=== PATIENT | male | born 1975 | race Caucasian/White ===

== ENCOUNTER 2018-01-30 10:56 | Emergency (ER) | payer OTHER ==
[2018-01-30] MEDS: KETOROLAC 30 MG/ML VIAL (J1885) IV (11:58)
[2018-01-30 12:01] LABS: BASO % 0.2 % (0.0-1.0); EOS # 0.2 10^3/uL (0.0-0.50); EOS % 2.2 % (0.0-3.0); HEMATOCRIT 41.4 % (42.0-52.0); HEMOGLOBIN 13.8 g/dl (13.5-17.5); IMMATURE GRANULOCYTE % 0.4 % (0-3.0); LYMPH # 1.6 10^3/uL (1.5-4.5); LYMPH % 14.5 % (24.0-44.0); MEAN CORPUSCULAR HEMOGLOBIN 27.4 pg (27.0-33.0); MEAN CORPUSCULAR HGB CONC 33.3 g/dl (32.0-36.5); MEAN CORPUSCULAR VOLUME 82.1 fl (80.0-96.0); MONO % 9.4 % (0.0-5.0); NEUTROPHILS # 8.1 10^3/uL (1.8-7.7); NEUTROPHILS % 73.3 % (36.0-66.0); PLATELET COUNT, AUTOMATED 302 10^3/uL (150-450); RED BLOOD COUNT 5.04 10^6/uL (4.30-6.10); RED CELL DISTRIBUTION WIDTH 14.5 % (11.5-14.5); WHITE BLOOD COUNT 11.1 10^3/uL (4.0-10.0)
[2018-01-30] MEDS: GASTROGRAFIN SOLUTION 30ML (Q9963) PO ×2 (12:01→12:15)
[2018-01-30 12:29] LABS: ALBUMIN 3.9 GM/DL (3.2-5.2); ALBUMIN/GLOBULIN RATIO 1.18 (1.00-1.93); ALKALINE PHOSPHATASE 80 U/L (45-117); ALT/SGPT 45 U/L (12-78); ANION GAP 11 MEQ/L (8-16); AST/SGOT 29 U/L (7-37); BILIRUBIN,TOTAL 0.3 MG/DL (0.2-1.0); BLOOD UREA NITROGEN 13 MG/DL (7-18); C REACTIVE PROTEIN QUANTITATIV 2.15 MG/DL (0.00-0.30); CALCIUM LEVEL 9.2 MG/DL (8.5-10.1); CARBON DIOXIDE LEVEL 25 MEQ/L (21-32); CHLORIDE LEVEL 103 MEQ/L (98-107); CREATININE FOR GFR 0.82 MG/DL (0.70-1.30); GLOMERULAR FILTRATION RATE > 60.0 (>60); GLUCOSE, FASTING 86 MG/DL (70-100); LIPASE 83 U/L (73-393); POTASSIUM SERUM 4.3 MEQ/L (3.5-5.1); SODIUM LEVEL 139 MEQ/L (136-145); TOTAL PROTEIN 7.2 GM/DL (6.4-8.2)
[2018-01-30 13:32] LABS: APPEARANCE, URINE CLEAR (CLEAR); BACTERIA, URINE AUTO NEGATIVE (NEGATIVE); BILIRUBIN, URINE AUTO NEGATIVE (NEGATIVE); BLOOD, URINE BLOOD NEGATIVE (NEGATIVE); COLOR, URINE YELLOW (YELLOW); GLUCOSE, URINE (UA) AUTO NEGATIVE (NEGATIVE); KETONE, URINE AUTO NEGATIVE (NEGATIVE); LEUKOCYTE ESTERASE, URINE AUTO NEGATIVE (NEGATIVE); MUCUS, URINE SMALL (NEGATIVE); NITRITE, URINE AUTO NEGATIVE (NEGATIVE); PROTEIN, URINE AUTO NEGATIVE (NEGATIVE); RBC, URINE AUTO 0 /HPF (0-3); SPECIFIC GRAVITY URINE AUTO 1.014 (1.002-1.035); SQUAMOUS EPITHELIAL CELL UR AU 0 /HPF (0-6); UROBILINOGEN, URINE AUTO 0.2 mg/dL (0.0-2.0); WBC, URINE AUTO 0 /HPF (0-3)
[2018-01-30] MEDS ORDERED: ISOVUE-370 76% 100ML VIAL (Q9967) As Ordered (13:45)
== END 2018-01-30 15:15 | disposition home or self-care (01) ==
LOC: M ED 10:56
DX: K57.32 Diverticulitis of large intestine without perforation or abscess without bleeding (principal); R10.32 Left lower quadrant pain
CPT/HCPCS: Q9963

== ENCOUNTER → 2018-03-07 | Outpatient (CLI) | payer OTHER ==
[2018-03-07 17:22] LABS: BASO % 0.5 % (0.0-1.0); EOS # 0.3 10^3/uL (0.0-0.50); EOS % 3.2 % (0.0-3.0); HEMATOCRIT 42.4 % (42.0-52.0); HEMOGLOBIN 13.7 g/dl (13.5-17.5); IMMATURE GRANULOCYTE % 0.6 % (0-3.0); LYMPH # 2.2 10^3/uL (1.5-4.5); LYMPH % 25.5 % (24.0-44.0); MEAN CORPUSCULAR HEMOGLOBIN 26.8 pg (27.0-33.0); MEAN CORPUSCULAR HGB CONC 32.3 g/dl (32.0-36.5); MEAN CORPUSCULAR VOLUME 82.8 fl (80.0-96.0); MONO # 0.9 10^3/uL (0.0-0.8); MONO % 9.7 % (0.0-5.0); NEUTROPHILS # 5.3 10^3/uL (1.8-7.7); NEUTROPHILS % 60.5 % (36.0-66.0); PLATELET COUNT, AUTOMATED 363 10^3/uL (150-450); RED BLOOD COUNT 5.12 10^6/uL (4.30-6.10); RED CELL DISTRIBUTION WIDTH 14.5 % (11.5-14.5); WHITE BLOOD COUNT 8.8 10^3/uL (4.0-10.0)
== END ==
LOC: M LAB 16:28
DX: R10.9 Unspecified abdominal pain (principal)
CPT/HCPCS: 85025

== ENCOUNTER → 2018-04-06 | Outpatient (CLI) | payer OTHER | LOC: M RAD 10:05 | DX: D48.0 Neoplasm of uncertain behavior of bone and articular cartilage (principal) | CPT/HCPCS: 78315 ==

== ENCOUNTER → 2018-04-09 | Outpatient (CLI) | payer OTHER | LOC: M CARPUL 10:37 | DX: Z86.711 Personal history of pulmonary embolism (principal) | CPT/HCPCS: Q9967 ==

== ENCOUNTER → 2018-04-09 | Outpatient (CLI) | payer OTHER ==
[~2018-04-09] MED LIST: ISOVUE-370 76% 100ML VIAL (Q9967) As Ordered
== END ==
LOC: M RAD 10:38
DX: Z86.711 Personal history of pulmonary embolism (principal)

== ENCOUNTER → 2019-12-06 | Outpatient (CLI) | payer OTHER ==
[~2019-12-06] MED LIST changes: +CIPR-249 PO; +FLAG500T PO; +FLON1SPR NARES; +FOLI1TAB11 PO; -ISOVUE-370 76% 100ML VIAL (Q9967) As Ordered; +KETO10TAB PO; +LORA-753 PO; +MULTCAP PO; +OMEP40CA97 PO; +XARE20TA PO
== END ==
LOC: M LABSMTC 11:30
PROVIDERS: ATTEND Surgery
DX: Z11.59 Encounter for screening for other viral diseases (principal)
CPT/HCPCS: C9803; U0003

== ENCOUNTER 2021-03-25 12:03 | Day surgery (SDC) | payer OTHER ==
[~2021-03-25] VITALS: Ht 180.3 cm; Wt 145.3 kg
[~2021-03-25 12:03] MED LIST changes: +NS 1,000 ML IV ONE; +OMEG12003 PO; +OMEP40CA4 PO; -OMEP40CA97 PO; +THERTAB52 PO
--- OUTSIDE RECORDS SUMMARY | 2021-03-25 12:08 | CCD | Continuity of Care Document ---
Author Author Ed LYNNE M.D. Organization Unknown Address [address] [facility], [address] [place] [address] Phone [phone] Care Team Providers Care Meat Press Operator Name Role Phone Chilo Baker D.O. AUTM [phone] AUTM Unavailable Errol Goddard M.D. AUTM [phone] Problems Description No Information Available Social History Type Date Description Comments Sex Unknown ETOH Use 2 A Month Recreational Drug Use Denies Drug Use Tobacco Use Start: Unknown End: Patient is a former smoker 1/2 PPD X5 YRS Allergies and adverse reactions Description No Known Drug Allergies Medications Active Medications SIG Qnty Indications Ordering Provide r Date Omeprazole 20mg Capsules DR 1 by mouth every day Unknown Multivitamin Adult Tablets 1 by mouth every day Unknown CPAP +11 [facility] Unknown Loratadine 10mg Capsules 1 by mouth every day Unknown Fish Oil 1200mg Capsules ever y day Unknown Immunizations Description No Information Available Vital Signs Date Vital Result Comment 01/27/2021 8:47am BP Systolic 150 mmHg BP Diastolic 88 mmHg Body Temperature 98.3 F Height 71 inches 5'11" Weight 329.00 lb BMI (Body Mass Index) 45.9 kg/m2 [place] Body Weight 172 lb Weight 149.234 kg BSA (Body Surface Area) 2.61 m2 12/04/2018 3:24pm BP Systolic 130 mmHg BP Diastolic 90 mmHg Heart Rate 83 /min O2 % BldC Oximetry 98 % Height 71 inches 5'11" Weight 332.00 lb BMI (Body Mass Index) 46.3 kg/m2 [place] Body Weight 172 lb Weight 150.595 kg BSA (Body Surface Area) 2.62 m2 Results Description No Information Available Procedures Date Code Description Status 01/27/2021 84418 Office/Outpatient Established Lo w MDM 20-29 Min Completed Medical Devices Description No Information Available Encounters Type Date Location Provider Dx Diagnosis Office Visit 01/27/2021 8:45a [facility] Edmar santoyo M.D. K57.32 Dvtrcli of lg int w/o perforation or abs cess w/o bleeding G47.33 Obstructive sleep apnea (clara lt) (pediatric) Assessments Date Code Description Provider 01/27/2021 K57.32 Diverticulitis of large intestin e without perforation or abs Edmar Lynne M.D. 01/27/2021 G47.33 Obstructive sleep apnea (adult) (pediatric) Edmar Lynne M.D. Plan of Treatment Future Appointment(s):* 04/08/2021 11:15 am - ANDREA Streeter at [facility] * 03/25/2021 1:45 pm - Edmar Lynne M.D. at [facility] 01/27/2021 - Edmar yLnne M.D.* K57.32 Diverticulitis of large intestine without perforation or abs* Comments:* Patient has now had at least 2 significant episodes of diverticulitis and his recollection is that he has had about 3 serious attacks. He is now doing well. Patient has never had a in the colon cancer screening. I advised the patient that I think it would be reasonable at this point to consider a colonoscopy. This would serve as his initial colon cancer screening but also allow us to assess the extent of his diverticulosis and also assess whether he may have some degree of scarring or narrowing from his diverticulitis. Indications for the procedure as well as the risks and possible benefits were discussed. He had an opportunity to ask questions. He desires to proceed and we will plan on scheduling a colo noscopy. * G47.33 Obstructive sleep apnea (adult) (pediatric) Functional Status Description No Information Available Mental Status Description No Information Available Referrals Refer to Reason for Referral Status Appt Date Edmar Lynne M.D. DIVERTICULITIS EVAL & TREAT Scheduled 12/23/2020 [facility] [address] [place], [place] [id number] [phone]
--- OUTSIDE RECORDS SUMMARY | 2021-03-25 12:08 | CCD | Continuity of Care Document ---
Author Author Ed LYNNE M.D. Organization Unknown Address [address] [facility], [address] [place] [address] Phone [phone] Care Team Providers Care Chemical Pathologist Name Role Phone Chilo Baker D.O. AUTM [phone] AUTM Unavailable Errol Goddard M.D. AUTM [phone] Problems Description No Information Available Social History Type Date Description Comments Sex Unknown ETOH Use 2 A Month Recreational Drug Use Denies Drug Use Tobacco Use Start: Unknown End: Patient is a former smoker 1/2 PPD X5 YRS Allergies, Adverse Reactions, Alerts Description No Known Drug Allergies Medications Active [...] lb BMI (Body Mass Index) 45.9 kg/m2 [place] Body Weight 172 lb Weight 149.234 kg BSA (Body Surface Area) 2.61 m2 12/04/2018 3:24pm BP Systolic 130 mmHg BP Diastolic 90 mmHg Heart Rate 83 /min O2 % BldC Oximetry 98 % Height 71 inches 5'11" Weight 332.00 lb BMI (Body Mass Index) 46.3 kg/m2 [place] Body Weight 172 lb Weight 150.595 kg BSA (Body Surface Area) 2.62 m2 Results Description No Information Available Procedures Description No Information Available Medical Devices Description No Information Available Encounters Description No Information Available Assessments Description No Information Available Plan of Treatment 12/04/2018 - Radha Benítez M.D.* G47.33 Obstructive sleep apnea (adult) (pediatric) * I26.99 Other pulmonary embolism without acute cor pulmonale * * Follow up:* Follow-up in 1 year with compliance report Functional Status Description No Information Available Mental Status Description No Information Available Referrals Refer to Reason for Referral Status Appt Date Edmar Lynne M.D. DIVERTICULITIS EVAL & TREAT Scheduled 12/23/2020 [facility] [address] [place] [address] [phone]
--- OUTSIDE RECORDS SUMMARY | 2021-03-25 12:08 | CCD | Continuity of Care Document ---
Author Author Ed LYNNE M.D. Organization Unknown Address [address] [facility], [address] [place] [address] Phone [phone] Care Team Providers Care Senior Quality Methods Specialist Name Role Phone Chilo Baker D.O. AUTM [phone] AUTM Unavailable Errol Goddard M.D. AUTM [phone] Problems Description No Information Available Social History [...] lb BMI (Body Mass Index) 45.9 kg/m2 [place] Body Weight 172 lb Weight 149.234 kg BSA (Body Surface Area) 2.61 m2 12/04/2018 3:24pm BP Systolic 130 mmHg BP Diastolic 90 mmHg Heart Rate 83 /min O2 % BldC Oximetry 98 % Height 71 inches 5'11" Weight 332.00 lb BMI (Body Mass Index) 46.3 kg/m2 [place] Body Weight 172 lb Weight 150.595 kg BSA (Body Surface Area) 2.62 m2 Results Description No Information Available Procedures Date Code Description Status 01/27/2021 95040 Office/Outpatient Established Lo w MDM 20-29 Min Completed Medical Devices Description No Information Available Encounters Type Date Location Provider Dx Diagnosis Office Visit 01/27/2021 8:45a [facility] Edmar santoyo M.D. K57.32 Dvtrcli of [...] 04/08/2021 11:15 am - ANDREA Streeter at [facility] * 03/25/2021 1:45 pm - Edmar Lynne M.D. at [facility] 01/27/2021 - Edmar Lynne M.D.* K57.32 Diverticulitis of large intestine without [...] M.D. DIVERTICULITIS EVAL & TREAT Scheduled 12/23/2020 [facility] [address] [place], [place] [id number] [phone]
--- OUTSIDE RECORDS SUMMARY | 2021-03-25 12:09 | CCD ---
Author Author [facility] Address Unknown Phone Unavailable Care Team Providers Care Strength And Conditioning Coach Name Role Phone Albert WADE MD Unavailable Unavailable Albert WADE MD Unavailable Unavailable Albert WADE MD Unavailable Unavailable Albert WADE MD Unavailable Unavailable Albert WADE MD Unavailable Unavailable Albert WADE MD Unavailable Unavailable Albert WADE MD Unavailable Unavailable Albert WADE MD Unavailable Unavailable Albert WADE MD Unavailable Unavailable Albert WADE MD Unavailable Unavailable Albert WADE MD Unavailable Unavailable Albert WADE MD Unavailable Unavailable Albert WADE MD Unavailable Unavailable Albert WADE MD Unavailable Unavailable Albert WADE MD Unavailable Unavailable Albert WADE MD Unavailable Unavailable Albert WADE MD Unavailable Unavailable Albert WADE MD Unavailable Unavailable Albert WADE MD Unavailable Unavailable Albert WADE MD Unavailable Unavailable Albert WADE MD Unavailable Unavailable Albert WADE MD Unavailable Unavailable Albert WADE MD Unavailable Unavailable Albert WADE MD Unavailable Unavailable Albert WADE MD Unavailable Unavailable Albert WADE MD Unavailable Unavailable Albert WADE MD Unavailable Unavailable Albert WADE MD Unavailable Unavailable Albert WADE MD Unavailable Unavailable Albert WADE MD Unavailable Unavailable Albert WADE MD Unavailable Unavailable Albert WADE MD Unavailable Unavailable Albert WADE MD Unavailable Unavailable Albert WADE MD Unavailable Unavailable Albert WADE MD Unavailable Unavailable Albert WADE MD Unavailable Unavailable SHERI H JAMES ZUNIGA Unavailable Unavailable SHERI H JAMES ZUNIGA Unavailable Unavailable Albert WADE MD Unavailable Unavailable Albert WADE MD Unavailable Unavailable Albert WADE MD Unavailable Unavailable Albert WADE MD Unavailable Unavailable SHERI H JAMES ZUNIGA Unavailable Unavailable SHERI H JAMES ZUNIGA Unavailable Unavailable Albert WADE MD Unavailable Unavailable SHERI H JAMES ZUNIGA Unavailable Unavailable Albert WADE MD Unavailable Unavailable Albert WADE MD Unavailable Unavailable Albert WADE MD Unavailable Unavailable Albert WADE MD Unavailable Unavailable Albert WADE MD Unavailable Unavailable Albert WADE MD Unavailable Unavailable Albert WADE MD Unavailable Unavailable Albert WADE MD Unavailable Unavailable Albert WADE MD Unavailable Unavailable Albert WADE MD Unavailable Unavailable Albert WADE MD Unavailable Unavailable Albert WADE MD Unavailable Unavailable Albert WADE MD Unavailable Unavailable Albert WADE MD Unavailable Unavailable Albert WADE MD Unavailable Unavailable Albert WADE MD Unavailable Unavailable Albert WADE MD Unavailable Unavailable Albert WADE MD Unavailable Unavailable Albert WADE MD Unavailable Unavailable Albert WADE MD Unavailable Unavailable Albert WADE MD Unavailable Unavailable Albert WADE MD Unavailable Unavailable Albert WADE MD Unavailable Unavailable Albert WADE MD Unavailable Unavailable Albert WADE MD Unavailable Unavailable Albert WADE MD Unavailable Unavailable Albert WADE MD Unavailable Unavailable Albert WADE MD Unavailable Unavailable Albert WADE MD Unavailable Unavailable Albert WADE MD Unavailable Unavailable Albert WADE MD Unavailable Unavailable Naun LYNNE MD Unavailable Unavailable Naun LYNNE MD Unavailable Unavailable Naun LYNNE MD Unavailable Unavailable Naun LYNNE MD Unavailable Unavailable Naun LYNNE MD Unavailable Unavailable Naun LYNNE MD Unavailable Unavailable Naun LYNNE MD Unavailable Unavailable Naun LYNNE MD Unavailable Unavailable Naun LYNNE MD Unavailable Unavailable Naun LYNNE MD Unavailable Unavailable Naun LYNNE MD Unavailable Unavailable Naun LYNNE MD Unavailable Unavailable Naun LYNNE MD Unavailable Unavailable Naun LYNNE MD Unavailable Unavailable Naun LYNNE MD Unavailable Unavailable Naun LYNNE MD Unavailable Unavailable MAGED, O DARLEEN MD Unavailable Unavailable MAGED, O DARLEEN MD Unavailable Unavailable MAGED, O DARLEEN MD Unavailable Unavailable MAGED, O DARLEEN MD Unavailable Unavailable MAGED, O DARLEEN MD Unavailable Unavailable MAGED, O DARLEEN MD Unavailable Unavailable MAGED, O DARLEEN MD Unavailable Unavailable MAGED, O DARLEEN MD Unavailable Unavailable MAGED, O DARLEEN MD Unavailable Unavailable MAGED, O DARLEEN MD Unavailable Unavailable MAGED, O DARLEEN MD Unavailable Unavailable MAGED, O DARLEEN MD Unavailable Unavailable MAGED, O DARLEEN MD Unavailable Unavailable MAGED, O DARLEEN MD Unavailable Unavailable MAGED, O DARLEEN MD Unavailable Unavailable MAGED, O DARLEEN MD Unavailable Unavailable MAGED, O DARLEEN MD Unavailable Unavailable MAGED, O DARLEEN MD Unavailable Unavailable MAGED, O DARLEEN MD Unavailable Unavailable MAGED, O DARLEEN MD Unavailable Unavailable MAGED, O DARLEEN MD Unavailable Unavailable MAGED, O DARLEEN MD Unavailable Unavailable MAGED, O DARLEEN MD Unavailable Unavailable MAGED, O DARLEEN MD Unavailable Unavailable MAGED, O DARLEEN MD Unavailable Unavailable MAGED, O DARLEEN MD Unavailable Unavailable MAGED, O DARLEEN MD Unavailable Unavailable MAGED, O DARLEEN MD Unavailable Unavailable MAGED, O DARLEEN MD Unavailable Unavailable TURRIN, RAMONITA Unavailable Unavailable TURRIN, RAMONITA Unavailable Unavailable TURRIN, RAMONITA Unavailable Unavailable TURRIN, RAMONITA Unavailable Unavailable Fish, J Chilo Unavailable Unavailable Fish, J Chilo Unavailable Unavailable Fish, J Chilo Unavailable Unavailable Fish, J Chilo Unavailable Unavailable Fish, J Chilo Unavailable Unavailable Fish, J Chilo Unavailable Unavailable Fish, J Chilo Unavailable Unavailable Fish, J Chilo Unavailable Unavailable Fish, J Chilo Unavailable Unavailable Fish, J Chilo Unavailable Unavailable Fish, J Chilo Unavailable Unavailable Fish, J Chilo Unavailable Unavailable Fish, J Chilo Unavailable Unavailable Fish, J Chilo Unavailable Unavailable Fish, J Chilo Unavailable Unavailable Fish, J Chilo Unavailable Unavailable Fish, J Chilo Unavailable Unavailable Fish, J Chilo Unavailable Unavailable Fish, J Chilo Unavailable Unavailable Fish, J Chilo Unavailable Unavailable Fish, J Chilo Unavailable Unavailable Fish, J Chilo Unavailable Unavailable Fish, J Chilo Unavailable Unavailable Fish, J Chilo Unavailable Unavailable Fish, J Chilo Unavailable Unavailable Fish, J Chilo Unavailable Unavailable Fish, J Chilo Unavailable Unavailable Fish, J Chilo Unavailable Unavailable Fish, J Chilo Unavailable Unavailable Fish, J Chilo Unavailable Unavailable Fish, J Chilo Unavailable Unavailable Fish, J Chilo Unavailable Unavailable Fish, J Chilo Unavailable Unavailable Fish, J Chilo Unavailable Unavailable Fish, J Chilo Unavailable Unavailable Fish, J Chilo Unavailable Unavailable Fish, J Chilo Unavailable Unavailable Fish, J Chilo Unavailable Unavailable Fish, J Chilo Unavailable Unavailable Fish, J Chilo Unavailable Unavailable Fish, J Chilo Unavailable Unavailable Fish, J Chilo Unavailable Unavailable Fish, J Chilo Unavailable Unavailable Fish, J Chilo Unavailable Unavailable Fish, J Chilo Unavailable Unavailable Fish, J Chilo Unavailable Unavailable Fish, J Chilo Unavailable Unavailable Fish, J Chilo Unavailable Unavailable Fish, J Chilo Unavailable Unavailable Fish, J Chilo Unavailable Unavailable Fish, J Chilo Unavailable Unavailable Fish, J Chilo Unavailable Unavailable Fish, J Chilo Unavailable Unavailable Fish, J Chilo Unavailable Unavailable Fish, J Chilo Unavailable Unavailable Fish, J Chilo Unavailable Unavailable Fish, J Chilo Unavailable Unavailable Fish, J Chilo Unavailable Unavailable Fish, J Chilo Unavailable Unavailable Fish, J Chilo Unavailable Unavailable Fish, J Chilo Unavailable Unavailable Fish, J Chilo Unavailable Unavailable Fish, J Chilo Unavailable Unavailable Fish, J Chilo Unavailable Unavailable Fish, J Chilo Unavailable Unavailable Fish, J Chilo Unavailable Unavailable Fish, J Chilo Unavailable Unavailable Fish, J Chilo Unavailable Unavailable Fish, J Chilo Unavailable Unavailable Fish, J Chilo Unavailable Unavailable Fish, J Chilo Unavailable Unavailable Fish, J Chilo Unavailable Unavailable Fish, J Chilo Unavailable Unavailable Fish, J Chilo Unavailable Unavailable Fish, J Chilo Unavailable Unavailable Fish, J Chilo Unavailable Unavailable Fish, J Chilo Unavailable Unavailable Fish, J Chilo Unavailable Unavailable Fish, J Chilo Unavailable Unavailable Fish, J Chilo Unavailable Unavailable Fish, J Chilo Unavailable Unavailable Fish, J Chilo Unavailable Unavailable Fish, J Chilo Unavailable Unavailable Fish, J Chilo Unavailable Unavailable Fish, J Chilo Unavailable Unavailable Fish, J Chilo Unavailable Unavailable Fish, J Chilo Unavailable Unavailable Fish, J Chilo Unavailable Unavailable Fish, J Chilo Unavailable Unavailable Fish, J Chilo Unavailable Unavailable Fish, J Chilo Unavailable Unavailable Fish, J Chilo Unavailable Unavailable Fish, J Chilo Unavailable Unavailable Fish, J Chilo Unavailable Unavailable Fish, J Chilo Unavailable Unavailable Fish, J Chilo Unavailable Unavailable Fish, J Chilo Unavailable Unavailable Fish, J Chilo Unavailable Unavailable Fish, J Chilo Unavailable Unavailable Fish, J Chilo Unavailable Unavailable Fish, J Chilo Unavailable Unavailable Fish, J Chilo Unavailable Unavailable Fish, J Chilo Unavailable Unavailable Fish, J Chilo Unavailable Unavailable Fish, J Chilo Unavailable Unavailable Fish, J Chilo Unavailable Unavailable Fish, J Chilo Unavailable Unavailable Fish, J Chilo Unavailable Unavailable Fish, J Chilo Unavailable Unavailable Fish, J Chilo Unavailable Unavailable Fish, J Chilo Unavailable Unavailable Fish, J Chilo Unavailable Unavailable Fish, J Chilo Unavailable Unavailable Fish, J Chilo Unavailable Unavailable Fish, J Chilo Unavailable Unavailable Fish, J Chilo Unavailable Unavailable Fish, J Chilo Unavailable Unavailable Fish, J Chilo Unavailable Unavailable Fish, J Chilo Unavailable Unavailable Fish, J Chilo Unavailable Unavailable Fish, J Chilo Unavailable Unavailable Fish, J Chilo Unavailable Unavailable Fish, J Chilo Unavailable Unavailable Fish, J Chilo Unavailable Unavailable Fish, J Chilo Unavailable Unavailable Fish, J Chilo Unavailable Unavailable Fish, J Chilo Unavailable Unavailable Fish, J Chilo Unavailable Unavailable Fish, J Chilo Unavailable Unavailable Fish, J Chilo Unavailable Unavailable Fish, J Chilo Unavailable Unavailable Fish, J Chilo Unavailable Unavailable Fish, J Chilo Unavailable Unavailable Fish, J Chilo Unavailable Unavailable Fish, J Chilo Unavailable Unavailable Fish, J Chilo Unavailable Unavailable Fish, J Chilo Unavailable Unavailable Fish, J Chilo Unavailable Unavailable Fish, J Chilo Unavailable Unavailable Fish, J Chilo Unavailable Unavailable Fish, J Cihlo Unavailable Unavailable Fish, J Chilo Unavailable Unavailable Fish, J Chilo Unavailable Unavailable Fish, J Chilo Unavailable Unavailable Fish, J Chilo Unavailable Unavailable Fish, J Chilo Unavailable Unavailable Fish, J Chilo Unavailable Unavailable Fish, J Chilo Unavailable Unavailable Fish, J Chilo Unavailable Unavailable Fish, J Chilo Unavailable Unavailable Fish, J Chilo Unavailable Unavailable Fish, J Chilo Unavailable Unavailable Fish, J Chilo Unavailable Unavailable Fish, J Chilo Unavailable Unavailable Fish, J Chilo Unavailable Unavailable Fish, J Chilo Unavailable Unavailable Fish, J Chilo Unavailable Unavailable Fish, J Chilo Unavailable Unavailable Fish, J Chilo Unavailable Unavailable Fish, J Chilo Unavailable Unavailable Fish, J Chilo Unavailable Unavailable Fish, J Chilo Unavailable Unavailable Fish, J Chilo Unavailable Unavailable Fish, J Chilo Unavailable Unavailable Fish, J Chilo Unavailable Unavailable Fish, J Chilo Unavailable Unavailable Fish, J Chilo Unavailable Unavailable Fish, J Chilo Unavailable Unavailable Fish, J Chilo Unavailable Unavailable Fish, J Chilo Unavailable Unavailable RafaelKoko oglesby MD Unavailable Unavailable RafaelKoko oglesby MD Unavailable Unavailable RafaelKoko oglesby MD Unavailable Unavailable RafaelKoko oglesby MD Unavailable Unavailable RafaelKoko oglesby MD Unavailable Unavailable RafaelKoko oglesby MD Unavailable Unavailable RafaelKoko oglesby MD Unavailable Unavailable RafaelKoko oglesby MD Unavailable Unavailable RafaelKoko oglesby MD Unavailable Unavailable RafaelKoko oglesby MD Unavailable Unavailable RafaelKoko oglesby MD Unavailable Unavailable RafaelKoko oglesby MD Unavailable Unavailable RafaelKoko oglesby MD Unavailable Unavailable RafaelKoko oglesby MD Unavailable Unavailable RafaelKoko oglesby MD Unavailable Unavailable RafaelKoko oglesby MD Unavailable Unavailable RafaelKoko oglesby MD Unavailable Unavailable RafaelKoko oglesby MD Unavailable Unavailable RafaelKoko olgesby MD Unavailable Unavailable RafaelKoko oglesby MD Unavailable Unavailable RafaelKoko oglesby MD Unavailable Unavailable Koko Hall MD Unavailable Unavailable Koko Hall MD Unavailable Unavailable Koko Hall MD Unavailable Unavailable Koko Hall MD Unavailable Unavailable Koko Hall MD Unavailable Unavailable Koko Hall MD Unavailable Unavailable Koko Hall MD Unavailable Unavailable Koko Hall MD Unavailable Unavailable RafaelKoko oglesby MD Unavailable Unavailable RafaelKoko oglesby MD Unavailable Unavailable Koko Hall MD Unavailable Unavailable Koko Hall MD Unavailable Unavailable Koko Hall MD Unavailable Unavailable Koko Hall MD Unavailable Unavailable RafaelKoko oglesby MD Unavailable Unavailable Koko Hall MD Unavailable Unavailable Koko Hall MD Unavailable Unavailable Koko Hall MD Unavailable Unavailable Koko Hall MD Unavailable Unavailable Koko aHll MD Unavailable Unavailable Koko Hall MD Unavailable Unavailable Rachel Sánchez MD Unavailable Unavailable Rachel Sánchez MD Unavailable Unavailable Rachel Sánchez MD Unavailable Unavailable Rachel Sánchez MD Unavailable Unavailable [place], B Marques MD Unavailable Unavailable [place], B Marques MD Unavailable Unavailable [place], B Marques MD Unavailable Unavailable [place], B Marques MD Unavailable Unavailable [place], B Marques MD Unavailable Unavailable [place], B Marques MD Unavailable Unavailable [place], B Marques MD Unavailable Unavailable [place], B Marques MD Unavailable Unavailable Re-disclosure Warning The records that you are about to access may contain information from federally-assisted alcohol or drug abuse programs. If such information is present, then the following federally mandated warning applies: This information has been disclosed to you from records protected by federal confidentiality rules (42 CFR part 2). The federal rules prohibit you from making any further disclosure of this information unless further disclosure is expressly permitted by the written consent of the person to whom it pertains or as otherwise permitted by 42 CFR part 2. A general authorization for the release of medical or other information is NOT sufficient for this purpose. The Federal rules restrict any use of the information to criminally investigate or prosecute any alcohol or drug abuse patient.The records that you are about to access may contain highly sensitive health information, the redisclosure of which is protected by Article 27-F of the [facility] Public Health law. If you continue you may have access to information: Regarding HIV / AIDS; Provided by facilities licensed or operated by the [facility] Office of Mental Health; or Provided by the [facility] Office for People With Developmental Disabilities. If such information is present, then the following [facility] mandated warning applies: This information has been disclosed to you from confidential records which are protected by state law. State law prohibits you from making any further disclosure of this information without the specific written consent of the person to whom it pertains, or as otherwise permitted by law. Any unauthorized further disclosure in violation of state law may result in a fine or long term sentence or both. A general authorization for the release of medical or other information is NOT sufficient authorization for further disc losure. Allergies and Adverse Reactions Type Description Substance Reaction Status Data Source(s ) Drug allergy No Known Drug Allergies No Known Drug Allergies [facility] Food allergy No Known Food Allergies No Known Food Allergies [facility] No Known Allergies No Known Allergies [facility] Family History Family Member Name Family Member Gender Family Member Status Date o f Status Description Data Source(s) Unknown Condition [facility] Unknown Unknown Problem [facility] ([facility] Unknown Male Problem [facility] ([facility] Encounters Encounter Providers Location Date Indications Data Source(s ) Outpatient Attender: DARLEEN Olivier/Ryann/Deep/Kaylee perez 01/27/2021 08:45:00 AM EDT [facility] ([facility] Outpatient Attender: JAMES WADE MD [facility] 03:40:00 PM EDT [facility] ([facility] Outpatient Attender: Marques Sánchez MDAdmitter: Marques wiley MD 2020 01:00:00 AM EDT - 11/22/2020 10:22:00 AM EDT ACUTE DIVERTICULITIS [facility] ACUTE DIVERTICULITIS Patient discharged. Emergency Attender: RAMONITA Bahsultant: Chilo dunbar 11/20/2020 05:50:00 PM EDT - 2020 12:33:00 AM EDT [facility] Patient discharged. Outpatient Attender: JAMES WADE MD [facility] 11/2020 03:20:00 PM EDT [facility] ([facility] Outpatient Attender: Rito Hall MDAttender: Chilo Baker ED-SDCSDC 12/11/2019 07:00:00 AM EDT - 12/11/2019 10:18:00 AM EDT VIRILITY [facility] VIRILITY Patient discharged. Functional Status Medications Medication Brand Name Start Date Product Form Dose Route Admi nistrative Instructions Pharmacy Instructions Status Indications Reaction Description Data Source(s) Metronidazole 500 MG Oral Tablet Metronidazole 11/22/2020 09:28:25 AM EDT 500 MG active [facility] Ciprofloxacin 500 MG Oral Tablet Ciprofloxacin Hcl (Ci pro) 500 mg tablet Ciprofloxacin Hcl (Cipro) 500 mg tablet 11/22/2020 09:28:05 AM EDT 50 0 MG active [facility] 500 mg 11/22/2020 12:00:00 AM EDT tablet 18 TAKE ONE TABLET BY MOUTH TWICE A DAY TAKE ONE TABLET BY MOUTH TWICE A DAY SOLD: 11/22/2020 [facility] Metronidazole 500 MG Oral Tablet METRONIDAZOLE 11/22/2020 12:0 0:00 AM EDT tablet 27 TAKE ONE TABLET BY MOUTH EVERY 8 HOURS TAKE ONE TABLET BY MOUTH EVERY 8 HOURS SOLD: 11/22/2020 [facility] [place] Fatty Acids 2020 02:08:14 AM EDT 1000 MG active [facility] Omeprazole 20 MG Delayed Release Oral Capsule Omeprazole 2020 02:07:24 AM EDT 20 MG active [facility] Multivitamin 2020 02:05:44 AM EDT 1 TAB acti ve [facility] Hydrocortisone 10 MG/ML Rectal Cream [Proctocort] Proctocort 10/12/2020 12:00:00 AM EDT active MED[facility] ([facility] Insurance Providers Payer name Policy type / Coverage type Policy ID Covered constitution party ID Covered constitution party's relationship to martins Policy Martins Plan Information [facility] [id number] SP [id number] [facility] [id number] SP [id number] [facility] [id number] Marie [id number] [facility] AT [facility] [id number] 18 [id number] SELF PAY ONLY SP [id number] SPOUSE [id number] EAST [id number] SPOUSE [id number] 46 [id number] S [id number] [facility]sp AT [facility] ([facility]) 00 [id number] Self [id number] [employer] AT [facility] ([facility]) 00 [id number] Self [id number] [facility] Commercial [id number] Self 00 [id number] [employer] AT [facility] ([facility]) 00 [id number] Self [id number] [employer] AT [facility] ([facility]) 00 [id number] Self [id number] [facility] [id number] Self 00 [id number] [employer] AT [facility] ([facility]) 00 [id number] Self [id number] [employer] [facility] ([facility]) 00 [id number] Self [id number] [facility] AT [facility] -I [id number] 18 [id number] [facility] [id number] Self 00 [id number] [facility] AT [facility] -I/P [id number] 18 [id number] [facility] INSURANCE [facility] [id number] SP [id number] [facility] [id number] Self 00 [id number] [facility] [id number] Self 00 [id number] [facility] [id number] Self 00 [id number] [facility] ([facility]) 00 [id number] Self [id number] [facility] [id number] [facility] [id number] [facility] Commercial [id number] Self [facility] [id number] SP [id number] [facility] - O/P [id number] 01 [id number] Problems, Conditions, and Diagnoses Code Display Name Description Problem Type Effective Dates Data Source(s) Z8719 Personal history of other diseases of th e digestive system Personal history of other diseases of the digestive system Diagnosis 11/05 05:50:00 PM EDT [facility] [id number] Personal history of pulmonary embolism P ersonal history of pulmonary embolism Diagnosis 11/20/2020 05:50:00 PM EDT [facility] [id number] CONTACT WITH AND SUSPECTED EXPOSURE TO C OVID-19 CONTACT WITH AND SUSPECTED EXPOSURE TO COVID-19 Diagnosis 11/20/2020 05:50:00 PM EDT [facility] [id number] Diverticulitis of large inte say without perforation or abscess without bleeding Diverticulitis of large intestine withou t perforation or abscess without bleeding Diagnosis 11/20/2020 05:50:00 PM EDT [facility] [id number] Left lower quadrant pain Left lower quadrant pain Diag nosis 11/20/2020 05:50:00 PM EDT [facility] Surgeries/Procedures Procedure Description Date Indications Data Source(s) OFFICE OUTPATIENT VISIT 15 MINUTES 01/27/2021 12:00:00 AM EDT [facility] ([facility] ) OFFICE OUTPATIENT VISIT 25 MINUTES 11/26/2020 12:00:00 AM EDT [facility] ([facility] OFFICE OUTPATIENT VISIT 25 MINUTES 10/12/2020 12:00:00 AM EDT [facility] ([facility] Results ID Date Data Source [id number] 03/18/2021 09:22:00 PM EST [facility] Name Value Range Interpretation Code Description Data Jeanne rce(s) Supporting Document(s) [id number] Not Detected [facility] A Not Detected (negative) test result fo r this testmeans that SARS-CoV-2 RNA was not present in thespecimen above the limit of detection.A negative result does not rule out the possibilityof COVID-19 and should not be used as thesole basis for treatment or patient managementdecisions. If COVID-19 is still suspected, based onexposure history together with other clinical findings,re-testing should be considered in consultation withpublic health authorities. Laboratory test resultsshould always be considered in the context of clinicalobservations and epidemiological data in making afinal diagnosis and patient management decisions.Specimens that are self-collected were not tested withan internal control to confirm that the specimen wasproperly collected. As such, unobserved self-collectedspecimens from SARS-CoV-2 positive individuals mayyield negative results if the specimen was notcollected properly.Please review the "Fact Sheets" and FDA authorizedlabeling available for health care providers andpatients using the following websites:https://www.SaferTaxi.ExpenseBot/home/Covid-19/HCP/[facility]/fact-sheet2 .htmlhttps://www.SaferTaxi.ExpenseBot/home/Covid-19/Patients/Quest[facility]/fact-sheet 2.htmlThis test has been authorized by the FDA under anEmergency Use Authorization (EUA) for use by authorizedlaboratories.Methodology: Nucleic Acid Amplification Test (NAAT)includes RT-PCR or TMA ID Date Data Source [id number] 03/09/2021 07:00:00 AM EDT [facility] Name Value Range Interpretation Code Description Data Jeanne rce(s) Supporting Document(s) SARS coronavirus 2 RNA [Presence] in Res piratory specimen by DONAL with probe detection Not detected [facility] This lab was ordered by [facility] and re ported by [facility]. ID Date Data Source [id number] 03/11/2021 05:16:00 AM EDT [facility] Name Value Range Interpretation Code Description Data Jeanne rce(s) Supporting Document(s) [id number] NOT DETECTED [facility] A Not Detected (negative) test result fo r this testmeans that SARS- CoV-2 RNA was not present in the specimenabove the limit of detection. A negative result does notrule out the possibility of COVID-19 and should not beused as the sole basis for treatment or patient managementdecisions. If COVID-19 is still suspected, based onexposure history together with other clinical findings,re- testing should be considered [place] [facility]. Laboratory test results shouldalways be considered in the context of clinicalobservations and epidemiological data in making a finaldiagnosis and patient management decisions.Specimens that are self-collected were not tested withan internal control to confirm that the specimen wasproperly collected. As such, unobserved self-collectedspecimens from SARS-CoV-2 positive individuals may yieldnegative results if the specimen was not collected properly.Please review the "Fact Sheets" and FDA authorizedlabeling available for health care pr oviders andpatients using the following websites:Veotags.ExpenseBot/home/Covid-19/HCP/xz-yuiw-ronl-yqpvu4PvqrzKgsawfbu HubPages.com/home/Covid-19/Patients/oj-oduy-mgyq-ynamj3Fctt test has been authorized by the FDA under anEmergency Use Authorization (EUA) for use by authorizedlaboratories.Methodology: Nucleic Acid Amplification Test (NAAT)includes RT-PCR or TMA ID Date Data Source [id number] 03/09/2021 12:00:00 AM EDT [facility] Name Value Range Interpretation Code Description Data Jeanne rce(s) Supporting Document(s) SARS-COV-2 RNA RESP QL DONAL+PROBE Not detected [facility] This lab was ordered by [facility] Employee Cov id and reported by [employer] [facility]. ID Date Data Source [id number] 03/02/2021 12:00:00 PM EDT [facility] Name Value Range Interpretation Code Description Data Jeanne rce(s) Supporting Document(s) SARS coronavirus 2 RNA [Presence] in Res piratory specimen by DONAL with probe detection Not detected [facility] This lab was ordered by [facility] and re ported by [facility]. ID Date Data Source [id number] 03/04/2021 11:32:00 AM EDT [facility] Name Value Range Interpretation Code Description Data Jeanne rce(s) Supporting Document(s) [id number] NOT DETECTED [facility] A Not Detected (negative) test result fo r this testmeans that SARS- CoV-2 RNA was not present in the specimenabove the limit of detection. A negative result does notrule out the possibility of COVID-19 and should not beused as the sole basis for treatment or patient managementdecisions. If COVID-19 is still suspected, based onexposure history together with other clinical findings,re- testing should be considered [place] [facility]. Laboratory test results shouldalways be considered in the context of clinicalobservations and epidemiological data in making a finaldiagnosis and patient management decisions.Specimens that are self-collected were not tested withan internal control to confirm that the specimen wasproperly collected. As such, unobserved self-collectedspecimens from SARS-CoV-2 positive individuals may yieldnegative results if the specimen was not collected properly.Please review the "Fact Sheets" and FDA authorizedlabeling available for health care pr oviders andpatients using the following websites:[employer].ExpenseBot/home/Covid-19/HCP/dq-gtwt-jggr-uohux6VsmhgOvanggjv HubPages.com/home/Covid-19/Patients/np-ehgg-mgjw-evrut7Cotz test has been authorized by the FDA under anEmergency Use Authorization (EUA) for use by authorizedlaboratories.Methodology: Nucleic Acid Amplification Test (NAAT)includes RT-PCR or TMA ID Date Data Source [id number] 03/02/2021 05:00:00 AM EDT [facility] Name Value Range Interpretation Code Description Data Jeanne rce(s) Supporting Document(s) SARS-COV-2 RNA RESP QL DONAL+PROBE Not detected [facility] This lab was ordered by [facility] Employee Cov id and reported by [employer] [facility]. ID Date Data Source [id number] 02/24/2021 08:00:00 PM EDT [facility] Name Value Range Interpretation Code Description Data Jeanne rce(s) Supporting Document(s) SARS coronavirus 2 RNA [Presence] in Res piratory specimen by DONAL with probe detection Not detected [facility] This lab was ordered by [facility] and re ported by [facility]. ID Date Data Source [id number] 02/26/2021 03:50:00 AM EDT [facility] Name Value Range Interpretation Code Description Data Jeanne rce(s) Supporting Document(s) [id number] NOT DETECTED [facility] A Not Detected (negative) test result fo r this testmeans that SARS- CoV-2 RNA was not present in the specimenabove the limit of detection. A negative result does notrule out the possibility of COVID-19 and should not beused as the sole basis for treatment or patient managementdecisions. If COVID-19 is still suspected, based onexposure history together with other clinical findings,re- testing should be considered [place] [facility]. Laboratory test results shouldalways be considered in the context of clinicalobservations and epidemiological data in making a finaldiagnosis and patient management decisions.Specimens that are self-collected were not tested withan internal control to confirm that the specimen wasproperly collected. As such, unobserved self-collectedspecimens from SARS-CoV-2 positive individuals may yieldnegative results if the specimen was not collected properly.Please review the "Fact Sheets" and FDA authorizedlabeling available for health care pr oviders andpatients using the following websites:[employer].ExpenseBot/home/Covid-19/HCP/rc-jvqd-zpdz-quuwo2DpnbaRfleniicThreatMetrix/home/Covid-19/Patients/gr-jili-npmc-qfhte3Rtja test has been authorized by the FDA under anEmergency Use Authorization (EUA) for use by authorizedlaboratories.Methodology: Nucleic Acid Amplification Test (NAAT)includes RT-PCR or TMA ID Date Data Source [id number] 02/24/2021 01:00:[address] [facility] Name Value Range Interpretation Code Description Data Jeanne rce(s) Supporting Document(s) SARS-COV-2 RNA RESP QL DONAL+PROBE Not detected [facility] This lab was ordered by [facility] Employee Cov id and reported by [employer]. ID Date Data Source [id number] 11/24/2020 10:09:00 [place] [address] PHONE: [phone] FAX: [phone] Name .................. : KARLENE Ramos Acct Number.................. : [id number] ROOM. ................. : TR-07 MR Number ................... : [id number] Stay type ............. : E/R Discharge Date......... ... : 11/21/20 Admit Date ......... : 11/20/20 Admit Phys .................... : SUSIE CRAWFORD Date of ....... : 1975 Family Phys ................... : GUS NICHOLS Phone .................. : [phone] Age ................................ : 45 Film# .................. .:[id number] Sex ................................. : M Unsigned transcriptions are preliminary reports and do not represent a medical or legal document CT ABD & PELVIS W/ IV ONLY [id number] COMPLETE:11/20/20 23:22 [facility] [address] Reason(s): increasing pain to umbilicus and LLQ abd, hx umbilical hernia an CT OF THE ABDOMEN AND PELVIS WITH CONTRAST: INDICATION: Increasing pain to the umbilicus and left lower quadrant. FINDINGS: The chest base is clear. There is normal contrast-enhanced CT appearance of the liver, spleen, pancreas, adrenal glands and kidneys. No gallbladder wall thickening or biliary duct dilatation. There is moderate diverticulitis in the sigmoid colon. Scattered diverticula are noted throughout the colon. The bladder and pelvic organs are normal. No acute osseous abnormality. No lymphadenopathy. IMPRESSION: Moderate diverticulitis without evidence of abscess or free air. While performing the above CT examination, radiation dose reduction was accomplished utilizing automated exposure control, adjusting of the mA and kV based on the patient's body size and/or the use of imperative reconstructive techniques. CT dose: 1756.7 mGycm Contrast agent in mL: 75 Isovue 370 Method of administration: Intravenous Page 1 of 2 [facility] [address] [place] [address] PHONE: [phone] FAX: [phone] Name .................. : KARLENE Ramos Acct Number.................. : [id number] ROOM. ................. : TR-07 MR Number ................... : [id number] Stay type ............. : E/R Discharge Date......... ... : 11/21/20 Admit Date ......... : 11/20/20 Admit Phys .................... : SUSIE CRAWFORD Date of ....... : 1975 Family Phys ................... : GUS NICHOLS Phone .................. : [phone] Age ................................ : 45 Film# .................. .:[id number] Sex ................................. : M Unsigned transcriptions are preliminary reports and do not represent a medical or legal document CT ABD & PELVIS W/ IV ONLY [id number] COMPLETE:11/20/20 23:22 [facility] [address] Reason(s): increasing pain to umbilicus and LLQ abd, hx umbilical hernia an Electronically Reviewed and Signed By Norbert Lieberman M.D. , 11/24/20 10:09, WIY Transcribe Initials: CARMEN , Transcribe Date: 11/21/20 02:04, Dictation Date: Copy for: DENISE Martin via fax Copy for: GUS HUTCHINSON via fax Copy for: EMERGENCY DEPT via modem Copy for: 710 MED REC DISCHARGED Page 2 of 2 Name Value Range Interpretation Code Description Data Jeanne rce(s) Supporting Document(s) ID Date Data Source [id number] 11/22/2020 09:22:00 AM EDT [facility] Name: LEODAN MARIN : 1975 Age: 45 MR#: [id number] Admit Date: 11/21/20 Provider: Marques Sánchez MD Room #: 293 Consulting Provider: Dictation Date: 11/22/20 Discharge Summary Discharge Summary Admit Info/Diagnoses/Course Date of service:: 11/22/20 Admission Information: Patient, LEODAN MARIN, a 45 year old M, admitted on 11/21/20 01:00 by Marques Sánchez MD for ACUTE DIVERTICULITIS Family Chilo Bryant Discharge Date: 11/22/20 Most Recent Lab Results: 11/22/20 05:05 11/22/20 05:05 Laboratory Results Last 24 hours 11/22/20 05:05: WBC 7.4, RBC 4.63, Hgb 12.6 L, Hct 38.9 L, MCV 84, MCH 27, MCHC 32 L, RDW 14, Plt Count 251, MPV 10.3, Immature Gran % (Auto) 0.3, Neut % (Auto) 67.3, Lymph % (Auto) 17.5, [place] % (Auto) 10.4, Eos % (Auto) 4.2, Baso % (Auto) 0.3 L, Lymph # (Auto) 1.3, Abs Immat Gran (auto) 0.0, Add Manual Diff No, Absolute Neutrophils 5.0, Monocytes # 0.8, Absolute Eosinophils 0.3, Absolute Basophils 0.0 11/22/20 05:05: Sodium 142, Potassium 4.2, Chloride 110 H, Carbon Dioxide 28, Anion Gap 8, BUN 10, Creatinine 0.8, GFR Calculation Greater than 60, Glucose 103, Calcium 8.7, Total Bilirubin 0.5, AST 17, ALT 37, Alkaline Phosphatase 70, Serum Total Protein 6.5, Albumin 3.4 Hospital Course: Discharge diagnosis: 1. Acute diverticulitis 2. Obstructive sleep apnea 3. History of pulmonary embolism 4. Morbid obesity 5. GERD Hospital course: Patient hospitalized with acute diverticulitis and is stable for discharge tolerating oral liquids, to receive ciprofloxacin metronidazole and follow-up with primary care provider. Patient advised tohave outpatient colonoscopy and coordinate through primary care provider. His abdominal pain is resolved. Stool studies are pending at time of discharge and to be followed up by primary care provider Review of Systems General: Denies Fever HEENT: Denies Headaches Endocrine: Denies Excessive sweating Cardiovascular: Denies Chest Pain Pulmonary: Denies Dyspnea Gastrointestinal: Denies nausea Genitourinary: Denies Dysuria Musculoske letal: Denies Muscle Pain Neurological: Denies Weakness Psych: Denies anxiety Hematological/Lymphatic: Denies easy bleeding Allergic/Immunologic: Denies rash Exam Condition Vital Signs - Most Recent: Last Vital Signs Temp 98.3 F 11/21/20 21:00 Pulse 80 11/21/20 21:00 Resp 16 11/21/20 21:00 BP 141/72 11/21/20 21:00 Pulse Ox 94 L 11/21/20 21:00 Ht Wt BMI Current Height 5 ft 11 in Current Weight 323 lb Body Mass Index (BMI) 45.0 Body Mass Index (BMI) Obese Classification General: positive Alert and positive Oriented x3 HEENT: Atraumatic, PERRLA and EOMI Neck: Supple and No JVD Lungs: Clear to auscultation Cardiovascular: Regular rate, Normal S1 and Normal S2 Abdomen: Normal bowel sounds and Soft; negative for Tenderness Extremities: No clubbing, No cyanosis and No edema Skin: Skin warm and dry, Mucus membranes moist Psych/Mental Status: Mental status NL Discharge Plan Discharge Education Printouts: Diverticulitis (ED) Free Text/Narrative:: 1. Follow-up with primary care doctor in 5 to 7 days 2. Low residue diet, avoid seeds nuts popcorn 3. Activity as tolerated 4. Follow-up colonoscopy to be coordinated by your primary care provider to rule out underlying malignancy or other pathology Care plan: Plan of care discussed with patient and or family Medications Home Medications multivitamin 1 tab PO DAILY 11/21/20 [History] omega-3 fatty acids 1,000 mg PO DAILY 11/21/20 [History] omeprazole 20 mg PO DAILY 11/21/20 [History] ciprofloxacin HCl [Cipro] 500 mg PO BID #18 tab 11/22/20 [Rx] metronidazole 500 mg PO Q8H #27 tab 11/22/20 [Rx] Time Spent on Discharge: > 30 Minutes Quality Measures Tobacco Use Smoking Status: Never smoker Alcohol screening Alcohol Consumption (from nursing Hx): Infrequently BMI Screening: Current Height: 5 ft 11 in Current Weight: 323 lb Body Mass Index (BMI): 45.0 Diabetes Care Measures Glucose/POC Glucose: Glucose last 48 hrs 11/21/20 11/22/20 06:56 05:05 Glucose 100 103 Discharge Plan Admission/Discharge Dx Primary DC Diagnosis: Acute diverticulitis Condition Condition: Stable Discharge Detail Disposition: Home, Self-Care Med Rec New Prescriptions: New ciprofloxacin HCl [Cipro] 500 mg tablet 500 mg PO BID Qty: 18 RF: 0 metronidazole 500 mg tablet 500 mg PO Q8H Qty: 27 RF: 0 Continued multivitamin Tablet 1 tab PO DAILY RF: 0 omeprazole 20 mg Capsule,Delayed Release(Dr/Ec) 20 mg PO DAILY RF: 0 omega-3 fatty acids Capsule 1,000 mg PO DAILY RF: 0 Discharge Education Printouts: Diverticulitis (ED) Follow Up Visit/Referrals: Chilo Baker [Primary Care Provider] - 1 Week Diet:: Cardiac diet, low residue diet, avoid nuts popcorn seeds Medications Medication reconciliation performed by provider at discharge: Yes Follow Up Care/Instructions Diet/Activity/Wound Care..: 1. Follow-up with primary care doctor in 5 to 7 days 2. Low residue diet, avoid seeds nuts popcorn 3. Activity as tolerated 4. Follow-up colonoscopy to be coordinated by your primary care provider to rule out underlying malignancy or other pathology *Discharge Patient* Discharge Orders: Discharge Order (Routine); Ordered 11/22/20 Ordered By: Marques Sánchez Dictated by: <Electronically signed by Marques Sánchez MD> Marques Sánchez MD 11/22/20 0956 Marques Sánchez MD SIGNATURE DA Report Cosigners: D: STRAL 11/22/20921 T: STRAL 11/22/20921 CC: Name Value Range Interpretation Code Description Data Jeanne rce(s) Supporting Document(s) ID Date Data Source [id number] 11/22/2020 05:31:00 AM EDT [facility] Name Value Range Interpretation Code Description Data Jeanne rce(s) Supporting Document(s) Leukocytes [#/volume] in Blood by Automated count 7.4 10*3/uL 4.45-10 .71 N [facility] Erythrocytes [#/volume] in Blood by Automated count 4.63 10*6/uL 4.3- 6.1 N [facility] Hemoglobin [Moles/volume] in Blood 12.6 g/dL 13-18 Below low no rmal [facility] Hematocrit [Volume Fraction] of Blood by Automated count 38.9 % 42-52 Below low normal [facility] Erythrocyte mean corpuscular volume [Ent itic volume] in Cord blood by Automated count 84 fL 80-96 N [facility] ital Erythrocyte mean corpuscular hemoglobin [Entitic mass] by Au tomated count 27 pg 27-31 N [facility] Erythrocyte mean corpuscular hemoglobin concentration [Mass/volume] in Cord blood 32 g/dL 33-37 Below low normal [facility] Erythrocyte distribution width [Entitic volume] by Automated count 14 % 11-15 N [facility] Platelets [#/volume] in Blood by Automated count 251 10*3/uL 130-472 N [facility] Platelet mean volume [Entitic volume] in Blood 10.3 fL 9.1-13.1 N [facility] Neutrophils/100 leukocytes in Blood by Automated count 67.3 % 41- 77 N [facility] Neutrophils [#/volume] in Blood by Automated count 5.0 U 1.7-7.6 N [facility] Lymphocytes/100 leukocytes in Blood by Automated count 17.5 % 14- 46 N [facility] Lymphocytes [#/volume] in Blood by Automated count 1.3 U 0.6-4.6 N [facility] Monocytes/100 leukocytes in Blood by Automated count 10.4 % 4-12 N [facility] Monocytes [#/volume] in Blood by Automated count 0.8 U 0.2-1.2 N [facility] Eosinophils/100 leukocytes in Blood by Automated count 4.2 % 0-7 N [facility] Eosinophils [#/volume] in Blood by Automated count 0.3 U 0.0-0.5 N [facility] Basophils/100 leukocytes in Blood by Automated count 0.3 % 0.4-1.3 Below low normal [facility] Basophils [#/volume] in Blood by Automated count 0.0 U 0.0-0.2 N [facility] NUCLEATED RED BLOOD CELL 0 % [facility] NUCLEATED RED BLOOD CELL# [address] [facility] Immature granulocytes [Presence] in Blood by Automated count 0-2 N [facility] Immature granulocytes [#/volume] in Blood by Automated count 0.0 U 0-0.1 N [facility] Manual Differential panel - Blood NO [facility] ID Date Data Source [id number] 11/22/2020 06:04:00 AM EDT [facility] Name Value Range Interpretation Code Description Data Jeanne rce(s) Supporting Document(s) Urea nitrogen [Mass/volume] in Serum or Plasma 10 mg/dL 9-23 N [facility] Sodium [Moles/volume] in Serum or Plasma 142 mmol/L 132-146 [facility] Potassium [Moles/volume] in Serum or Plasma 4.2 mmol/L 3.5-5.5 [facility] Chloride [Moles/volume] in Serum or Plasma 110 mmol/L 99-109 Above high normal [facility] Carbon dioxide, total [Moles/volume] in Serum or Plasma 28 mmol/L 20 -31 [facility] Anion gap in Serum or Plasma 8 mmol/L 8-16 N [facility] Glucose [Mass/volume] in Serum or Plasma 103 mg/dL 74-106 N [facility] Creatinine 0.8 mg/dL 0.5-1.1 [facility] Glomerular filtration rate/1.73 sq M.pre dicted [Volume Rate/Area] in Serum or Plasma Greater Than 60 ABOVE 60 [facility] Alanine aminotransferase [Enzymatic acti vity/volume] in Serum or Plasma by With P-5'-P 37 U/L 10-49 N [facility] Aspartate aminotransferase [Enzymatic ac tivity/volume] in Serum or Plasma by With P-5'-P 17 U/L 0-33 [facility] pital Alkaline phosphatase [Enzymatic activity/volume] in Serum or Plasma 70 U/L 45-129 N [facility] Calcium [Mass/volume] in Serum or Plasma 8.7 mg/dL 8.5-10.1 N [facility] Bilirubin.total [Mass/volume] in Serum or Plasma 0.5 mg/dL 0.3-1.2 [facility] Albumin [Mass/volume] in Serum or Plasma by Bromocresol purple (BCP) dye binding method 3.4 g/dL 3.2-4.8 N [facility] Protein [Mass/volume] in Serum or Plasma 6.5 g/dL 5.7-8.2 N [facility] ID Date Data Source [id number] 11/22/2020 05:05:00 AM EDT [facility] ([facility] Name Value Range Interpretation Code Description Data Jeanne rce(s) Supporting Document(s) Sodium [Moles/volume] in Serum or Plasma 142 mmol/L 132-146 Normal (applies to non-numeric results) [facility] ([facility]) ACUTE DIVERTICULITIS Urea nitrogen [Mass/volume] in Serum or Plasma 10 mg/dL 9 -23 Normal (applies to non-numeric results) [facility] ([facility]) ACUTE DIVERTICULITIS Chloride [Moles/volume] in Serum or Plasma 110 mmol/L 99-109 Above high normal [facility] ([facility] ACUTE DIVERTICULITIS Potassium [Moles/volume] in Serum or Plasma 4.2 mmol/L 3.5- 5.5 Normal (applies to non-numeric results) [facility] ([facility] ACUTE DIVERTICULITIS Carbon dioxide, total [Moles/volume] in Serum or Plasma 28 mmol/ L 20-31 Normal (applies to non-numeric results) [facility] ([facility] ACUTE DIVERTICULITIS Glucose [Mass/volume] in Serum or Plasma 103 mg/dL 74-106 Normal (applies to non-numeric results) [facility] ([facility]) ACUTE DIVERTICULITIS Anion gap in Serum or Plasma 8 mmol/L 8-16 Nor mal (applies to non-numeric results) [facility] ([facility] ACUTE DIVERTICULITIS Creatinine 0.8 mg/dL 0.5-1.1 Normal (applies to non-numeric resul ts) [facility] ([facility] ACUTE DIVERTICULITIS Glomerular filtration rate/1.73 sq M.pre dicted [Volume Rate/Area] in Serum or Plasma Laboratory test result [facility] ACUTE DIVERTICULITIS Alanine aminotransferase [Enzymatic acti vity/volume] in Serum or Plasma by With P-5'-P 37 U/L 10-49 Normal (applies to non-numeric results) [facility] ([facility] ACUTE DIVERTICULITIS Alkaline phosphatase [Enzymatic activity/volume] in Serum or Plasma 70 U/L 45-129 Normal (applies to non-numeric results) [facility] ([facility] ACUTE DIVERTICULITIS Aspartate aminotransferase [Enzymatic ac tivity/volume] in Serum or Plasma by With P-5'-P 17 U/L 0-33 Normal (applies to non-numeric results) [facility] ([facility] ACUTE DIVERTICULITIS Bilirubin.total [Mass/volume] in Serum or Plasma 0.5 mg/dL 0.3-1.2 Normal (applies to non-numeric results) [facility] ACUTE DIVERTICULITIS Calcium [Mass/volume] in Serum or Plasma 8.7 mg/dL 8.5-10. 1 Normal (applies to non-numeric results) [facility] ([facility] ACUTE DIVERTICULITIS Albumin [Mass/volume] in Serum or Plasma by Bromocresol purple (BCP) dye binding method 3.4 g/dL 3.2-4.8 Normal (applies to non-numeric results) [facility] ([facility] ACUTE DIVERTICULITIS Protein [Mass/volume] in Serum or Plasma 6.5 g/dL 5.7-8.2 Normal (applies to non-numeric results) [facility] ([facility] ACUTE DIVERTICULITIS ID Date Data Source [id number] 11/22/2020 05:05:00 AM EDT [facility] ([facility] Name Value Range Interpretation Code Description Data Jeanne rce(s) Supporting Document(s) Leukocytes [#/volume] in Blood by Automated count 7.4 10*3/uL 4.45-10.71 Normal (applies to non-numeric results) [facility] ([facility] ACUTE DIVERTICULITIS Erythrocytes [#/volume] in Blood by Automated count 4.63 10*6/uL 4.3-6.1 Normal (applies to non-numeric results) [facility] ([facility] ACUTE DIVERTICULITIS Hemoglobin [Moles/volume] in Blood 12.6 g/dL 13-18 Below low no rmal [facility] ([facility] ACUTE DIVERTICULITIS Erythrocyte mean corpuscular volume [Ent itic volume] in Cord blood by Automated count 84 fL 80-96 Normal (applies to non-numeric results) [facility] ([facility] ACUTE DIVERTICULITIS Hematocrit [Volume Fraction] of Blood by Automated count 38.9 % 42-52 Below low normal [facility] ([facility] ) ACUTE DIVERTICULITIS Erythrocyte mean corpuscular hemoglobin [Entitic mass] by Au tomated count 27 pg 27-31 Normal (applies to non-numeric results) [facility] ([facility] ACUTE DIVERTICULITIS Erythrocyte mean corpuscular hemoglobin concentration [Mass/volume] in Cord blood 32 g/dL 33-37 Below low normal [facility] ([facility] ACUTE DIVERTICULITIS Erythrocyte distribution width [Entitic volume] by Automated cou nt 14 % 11-15 Normal (applies to non-numeric results) [facility] ([facility] ACUTE DIVERTICULITIS Platelets [#/volume] in Blood by Automated count 251 10*3/uL 130-472 Normal (applies to non-numeric results) [facility] ([facility] ACUTE DIVERTICULITIS Platelet mean volume [Entitic volume] in Blood 10.3 fL 9 .1-13.1 Normal (applies to non-numeric results) [facility] ([facility] ACUTE DIVERTICULITIS Neutrophils/100 leukocytes in Blood by Automated count 67.3 % 41-77 Normal (applies to non-numeric results) [facility] ([facility] ACUTE DIVERTICULITIS Lymphocytes/100 leukocytes in Blood by Automated count 17.5 % 14-46 Normal (applies to non-numeric results) [facility]ERTICULITIS Neutrophils [#/volume] in Blood by Automated count 5.0 U 1.7-7.6 Normal (applies to non-numeric results) [facility] ([facility] ACUTE DIVERTICULITIS Monocytes/100 leukocytes in Blood by Automated count 10.4 % 4-12 Normal (applies to non-numeric results) [facility] ([facility] ACUTE DIVERTICULITIS Lymphocytes [#/volume] in Blood by Automated count 1.3 U 0.6-4.6 Normal (applies to non-numeric results) [facility] ([facility] ACUTE DIVERTICULITIS Eosinophils/100 leukocytes in Blood by Automated count 4.2 % 0-7 Normal (applies to non-numeric results) [facility] ([facility] ACUTE DIVERTICULITIS Monocytes [#/volume] in Blood by Automated count 0.8 U 0.2-1.2 Normal (applies to non-numeric results) [facility] ([facility] ACUTE DIVERTICULITIS Eosinophils [#/volume] in Blood by Automated count 0.3 U 0.0-0.5 Normal (applies to non-numeric results) [facility] ([facility] ACUTE DIVERTICULITIS Basophils/100 leukocytes in Blood by Automated count 0.3 % 0.4-1.3 Below low normal [facility] ([facility] ) ACUTE DIVERTICULITIS Basophils [#/volume] in Blood by Automated count 0.0 U 0.0-0.2 Normal (applies to non-numeric results) [facility] ([facility] ACUTE DIVERTICULITIS Nucleated Red Blood Cell 0 % MEDEN T ([facility] ACUTE DIVERTICULITIS Laboratory test finding (navigational concept) 0 U [facility] ([facility] ACUTE DIVERTICULITIS Immature granulocytes [Presence] in Blood by Automated count 0.3 0-2 Normal (applies to non-numeric results) [facility] AC[facility] DIVERTICULITIS Immature granulocytes [#/volume] in Blood by Automated count 0.0 U 0-0.1 Normal (applies to non-numeric results) [facility] ACUTE DIVERTICULITIS Manual Differential panel - Blood Laboratory test result [facility] ([facility] ACUTE DIVERTICULITIS ID Date Data Source [id number] 2020 07:34:00 AM EDT [facility] Name: LEODAN MARIN : 1975 Age: 45 MR#: [id number] Admit Date: 11/21/20 Provider: Marques Sánchez MD Room #: 293 Consulting Provider: Dictation Date: 11/21/20 Progress Note Subjective-ROS Date of service Date of service:: 11/21/20 Review of Systems ROS (Free Text/Narrative):: Patient in good spirits abdominal pain continues General: Denies Fever or Chills HEENT: Denies Headaches Endocrine: Denies Excessive sweating Cardiovascular: Denies Chest Pain Pulmonary: Denies Dyspnea Gastrointestinal: Reports abdominal pain; Denies nausea or vomiting Genitourinary: Denies Dysuria Musculoskeletal: Denies Muscle Pain Neurological: Denies Weakness Psych: Denies anxiety or feelings of guilt Hematological/Lymphatic: Denies easy bleeding Allergic/Immunologic: Denies rash Attestation/Length Of Stay: 11/21/20 01:32 Admit to Inpatient, Acute [STATUS] Routine Location: [facility] Primary diagnosis: Acute Diverticulitis Admitting Provider: Marques Sánchez Attending Provider: Marques Sánchez Status: Inpatient Admission Anticipated Length of stay:: 3-4 Midnights Vital Signs and I O Vitals and I O: Vital Signs last 12 hours Temp Pulse Pulse Resp BP BP Pulse Ox 11/21/20 01:34 97.8 F 89 89 16 161/92 161/92 95 Intake Output Last 24 Hours 11/19/20 11/20/20 11/21/20 23:59 23:59 23:59 Intake Total 100 / 100 Balance 100 / 100 Current Weight 323 lb Results Results: 11/21/20 06:56 Laboratory Results Last 24 hours 11/21/20 06:56: WBC 8.9, RBC 4.88, Hgb 13.1, Hct 40.5 L, MCV 83, MCH 27, MCHC 32 L, RDW 14, Plt Count 254, MPV 10.1, Immature Gran % (Auto) 0.1, Neut % (Auto) 74.8, Lymph % (Auto) 12.8 L, [place] % (Auto) 10.1, Eos % (Auto) 2.0, Baso % (Auto) 0.2 L, Lymph # (Auto) 1.1, Abs Immat Gran (auto) 0.0, Add Manual Diff No, Absolute Neutrophils 6.7, Monocytes # 0.9, Absolute Eosinophils 0.2, Absolute Basophils 0.0 Exam Orientation: Alert HEENT: Atraumatic, PERRLA and EOMI Lungs: normal lung sounds bilaterally Cardiovascular Exam: regular rate and normal rhythm Abdomen: Normal bowel sounds, Soft and Tenderness (Left lower quadrant tenderness no rebound or rigidity no pulsatile mass or bruits) Extremities: normal inspection Skin: Skin warm and dry, Mucus membranes moist Neurological: Normal speech Psych/Mental Status: normal affect Assessment/Plan A P Free Text/Narrative :: Impression: 1. Acute diverticulitis 2. Obstructive sleep apnea 3. History of pulmonary embolism 4. Morbid obesity 5. GERD Plan: Continue IV ciprofloxacin metronidazole start clear liquid diet and advance as tolerated. CPAP during sleep. Lovenox DVT prophylaxis. Patient full code Dictated by: <Electronically signed by Marques Sánchez MD> Marques Sánchez MD 11/21/20 0739 Marques Sánchez MD SIGNATURE DA Report Cosigners: D: STRAL 11/21/20 0734 T: STRAL 11/21/20 0734 CC: Name Value Range Interpretation Code Description Data Jeanne rce(s) Supporting Document(s) ID Date Data Source [id number] 2020 07:27:00 AM EDT [facility] Name Value Range Interpretation Code Description Data Jeanne rce(s) Supporting Document(s) Leukocytes [#/volume] in Blood by Automated count 8.9 10*3/uL 4.45-10 .71 [facility] Erythrocytes [#/volume] in Blood by Automated count 4.88 10*6/uL 4.3- 6.1 N [facility] Hemoglobin [Moles/volume] in Blood 13.1 g/dL 13-18 N [facility] Hematocrit [Volume Fraction] of Blood by Automated count 40.5 % 42-52 Below low normal [facility] Erythrocyte mean corpuscular volume [Ent itic volume] in Cord blood by Automated count 83 fL 80-96 N [facility] Erythrocyte mean corpuscular hemoglobin [Entitic mass] by Au tomated count 27 pg 27-31 N [facility] Erythrocyte mean corpuscular hemoglobin concentration [Mass/volume] in Cord blood 32 g/dL 33-37 Below low normal [facility] Erythrocyte distribution width [Entitic volume] by Automated count 14 % 11-15 N [facility] Platelets [#/volume] in Blood by Automated count 254 10*3/uL 130-472 N [facility] Platelet mean volume [Entitic volume] in Blood 10.1 fL 9.1-13.1 N [facility] Neutrophils/100 leukocytes in Blood by Automated count 74.8 % 41- 77 N [facility] Neutrophils [#/volume] in Blood by Automated count 6.7 U 1.7-7.6 N [facility] Lymphocytes/100 leukocytes in Blood by Automated count 12.8 % 14-46 Below low normal [facility] Lymphocytes [#/volume] in Blood by Automated count 1.1 U 0.6-4.6 N [facility] Monocytes/100 leukocytes in Blood by Automated count 10.1 % 4-12 N [facility] Monocytes [#/volume] in Blood by Automated count 0.9 U 0.2-1.2 N [facility] Eosinophils/100 leukocytes in Blood by Automated count 2.0 % 0-7 N [facility] Eosinophils [#/volume] in Blood by Automated count 0.2 U 0.0-0.5 N [facility] Basophils/100 leukocytes in Blood by Automated count 0.2 % 0.4-1.3 Below low normal [facility] Basophils [#/volume] in Blood by Automated count 0.0 U 0.0-0.2 N [facility] NUCLEATED RED BLOOD CELL 0 % [facility] NUCLEATED RED BLOOD CELL# [address] [facility] Immature granulocytes [Presence] in Blood by Automated count 0-2 N [facility] Immature granulocytes [#/volume] in Blood by Automated count 0.0 U 0-0.1 N [facility] Manual Differential panel - Blood NO [facility] ID Date Data Source [id number] 2020 08:10:00 AM EDT [facility] Name Value Range Interpretation Code Description Data Jeanne rce(s) Supporting Document(s) Urea nitrogen [Mass/volume] in Serum or Plasma 12 mg/dL 9-23 N [facility] Sodium [Moles/volume] in Serum or Plasma 140 mmol/L 132-146 N [facility] Potassium [Moles/volume] in Serum or Plasma 4.2 mmol/L 3.5-5.5 [facility] Chloride [Moles/volume] in Serum or Plasma 109 mmol/L 99-109 [facility] Carbon dioxide, total [Moles/volume] in Serum or Plasma 27 mmol/L 20 -31 [facility] Anion gap in Serum or Plasma 8 mmol/L 8-16 N [facility] Glucose [Mass/volume] in Serum or Plasma 100 mg/dL 74-106 N [facility] Creatinine 0.8 mg/dL 0.5-1.1 [facility] Glomerular filtration rate/1.73 sq M.pre dicted [Volume Rate/Area] in Serum or Plasma Greater Than 60 ABOVE 60 [facility] Alanine aminotransferase [Enzymatic acti vity/volume] in Serum or Plasma by With P-5'-P 36 U/L 10-49 [facility] Aspartate aminotransferase [Enzymatic ac tivity/volume] in Serum or Plasma by With P-5'-P 20 U/L 0-33 [facility] pital Alkaline phosphatase [Enzymatic activity/volume] in Serum or Plasma 76 U/L 45-129 N [facility] Calcium [Mass/volume] in Serum or Plasma 8.7 mg/dL 8.5-10.1 [facility] Bilirubin.total [Mass/volume] in Serum or Plasma 0.8 mg/dL 0.3-1.2 [facility] Albumin [Mass/volume] in Serum or Plasma by Bromocresol purple (BCP) dye binding method 3.5 g/dL 3.2-4.8 N [facility] Protein [Mass/volume] in Serum or Plasma 6.7 g/dL 5.7-8.2 N [facility] ID Date Data Source [id number] 2020 01:37:00 AM EDT [facility] Name: LEODAN MARIN : 1975 Age: 45 MR#: [id number] Admit Date: 11/21/20 Provider: Alicia Schmitt Room #: 293 Consulting Provider: Dictation Date: 11/21/20 History Physical HPI Date of service Date of service:: 11/21/20 History of Present Illness Chief Complaint: abdominal pain Primary (Admitting) Diagnosis: Acute diverticulitis HPI Free Text/Narrative:: Pleasant 45-year-old white male with history of diverticulosis, diverticulitis, pulmonary embolism, ARSEN, umbilical hernia, morbid obesity, is admitted by direct admission from [facility], the patientreports abdominal pain that began this morning in the umbilical area that seems like pressure radiating to the left lower quadrant, constant, gets more worse with movement, the pain is 4-5/10, nothing makes it better at home. , denies fever, chills, nausea, vomiting, chest pain, shortness of breath, any change in bowel habits, any urinary symptoms. Denies flank pain, denies black stools, rectal bleeding, any other symptoms. The patient had slight leukocytosis about 12, normal lactic acid normal CMP, normal renal function, normal liver function, hemoglobin and platelets are at baseline, CT scan that was done in [facility] ER revealed diverticulitis without abscess or free air inthe abdomen. The patient was sedated and [facility] ER with ciprofloxacin and Flagyl. The patient was sent to from [facility] because you do not have available beds for admission. Past History: Medical: diverticulosis, diverticulitis, PE, Pneumonia, umbilical hernia Surgical: testicular torsion surgery, vasectomy Social history: Former smoker quit smoking when he was 22 years old, drinks alcohol occasionally no more than 2 drinks per week, denies using marijuana or any illicit drugs. Family history: Both parents are in their 70s and they are alive, mother: Healthy, father: Diabetes mellitus CODE STATUS: Full code Allergies/Home Meds Allergies Allergy/AdvReac Type Severity Reaction Status Date / Time No Known Drug Allergies Allergy Verified 11/21/20 02:05 [From No known Food or Drug Allergies] No Known Food Allergies Allergy Verified 11/21/20 02:05 [From No known Food or Drug Allergies] Home Medications Medication Instructions Recorded Confirmed Last Taken Type multivitamin 1 tab PO DAILY 11/21/20 11/22/20 11/22/20 08:00 History omega-3 fatty acids 1,000 mg PO DAILY 11/21/20 11/22/20 11/22/20 07:00 History omeprazole 20 mg PO DAILY 11/21/20 11/22/20 11/22/20 08:00 History ciprofloxacin HCl [Cipro] 500 mg PO BID #18 tab 11/22/20 Unknown Rx metronidazole 500 mg PO Q8H #27 tab 11/22/20 Unknown Rx PFSH Medical History D iverticulitis Diverticulosis Gastro-esophageal reflux Pulmonary emboli Testicular torsion Family History (Updated 11/21/20 @ 01:43 by Graham Lozano RN) Grandmother Ovarian cancer Father Diabetes Grandfather Diabetes Social History (Updated 11/21/20 @ 01:38 by Graham Lozano RN) Does the Patient have a Healthcare Proxy: No Does Patient have a DNR?: No Does Patient have a Living Will?: No Does the Patient have a MOLST?: No Advance Directives on File or in chart?: No caregiver/support person: No Hx Recent Travel (where): No caffeine: No Smoking Status: Never smoker passive smoking exposure: No Sickle cell Sickle Cell Screening:: Not indicated ROS Const Details: All 10 points of ROS are reviewed, they are all negative except those reported in the HPI. HPI is positive for abdominal pain. Exam Const Other: General: Well- nourished, well developed patient Head: Atraumatic, normocephalic, normal inspection Eye: Normal appearance, PERRL, EOMI, no scleral icterus. ENT: Normal inspection, mucous membranes moist. Neck: Normal inspection, full ROM, supple. no meningismus. Respiratory: Normal respiratory effort. Normal lung sounds bilaterally, no rhonchi, rales, or wheezes. Cardiovascular: regular rate and regular rhythm. GI/Abdominal: Inspection: normal to inspection. Auscultation: normal bowel sounds. Palpation: soft, left lower quadrant tenderness, no rebound tenderness, no rigidity, no guarding. Small umbilical hernia, easily reducible without any tenderness. Obesity, no hepatosplenomegaly. Extremities exam: normal inspection, full ROM without tenderness, capillary refill brisk, no pedal edema. Neurological: Alert, oriented X3, no neurological deficits. equal sensation both sides of the body. Back exam: full ROM, no right or left CVA tenderness. Psychiatric Exam: Normal affect and normal mood. Skin: warm, dry and intact Assessment/Plan A P Free Text/Narrative :: 45-year-old white male with history of morbid obesity, umbilical hernia, diverticulosis, diverticulitis, pulmonary embolism, obstructive sleep apnea, GERD, is admitted for acute diverticulitis by direct admission from [facility] ER. The patient is placed on ciprofloxacin, Flagyl, n.p.o., the plan will be to continue the n.p.o. and IV fluids until the pain resolves, then stop the IV fluids began clear liquid diet, if tolerated, updated diet to low fiber diet if tolerated the patient can be discharged to complete 1 week of the antibiotics and to follow-up with his MD. Acute diverticulitis No abscess or free air per the CT scan report. Ciprofloxacin and metronidazole IV, IV fluids. Pain medications as needed N.p.o. for now then upgrade the diet as tolerated. The patient will need to continue on low residue diet for 2 weeks after discharge then can eat regular diet. History of pulmonary embolism Happened about 3 years ago after previous hospitalization for his diverticulitis. The patient was treated back then for 6-month with anticoagulation. Monitor for any shortness of breath, I prescribed DVT prophylaxis. Morbid obesity I counseled the patient about the benefits of losing weight and that he need to be on low-fat diet Obstructive sleep apnea The patient is on CPAP at home, I ordered CPAP. The patient seems compliant with his home CPAP. GERD Continue omeprazole from home medication DVT prophylaxis: Tanika score: 5, anticoagulation is indicated, Lovenox daily subcutaneous. GI stress peptic ulcer prophylaxis: Not indicated, the patient is on omeprazole for GERD. Time spent 40 minutes Attending physician: Dr. Sánchez Care plan: Plan of care discussed with patient and or family, Patient encouraged to ask questions about plan and Patient agrees with plan of care Dictated by: <Electronically signed by Alicia MENDEZ> Alicia MENDEZ 11/25/20 1928 Alicia Magana SIGNATURE DA Report Cosigners: <<Signature on File>> Marques Sánchez MD 11/26/201514 <Electronically signed by Marques Sánchez MD> Marques Sánchez MD 11/26/20 1515 D: ALBIB 11/21/20136 T: ALBIB 11/21/20136 CC: Name Value Range Interpretation Code Description Data Jeanne rce(s) Supporting Document(s) ID Date Data Source [id number] 11/20/2020 05:50:00 PM EDT [facility] 1 OrderSheet [facility] Emergency Department [address] [place] [address] Phone #: ext- [phone] 11/20/2020 17:47 Patient: LEODAN MARIN Sex: M : 1975 Age: 44yWEIGHT:13.6 kg (S) HEIGHT:71 inches (S) BMI:4.2ALLERGIES: No Known Drug AllergyCHIEF COMPLAINT: abdominal painDIAGNOSIS: Diverticulitis of large intestineLAB ORDERSOrder Description Priority Entered Acknowledged InitialedCBC w Diff STAT 20:11/20/2020 20:38 Leodan Alarcon; Elizabeth WilkinsonCMP STAT 20:11/20/2020 20:38 Leodan Alarcon; Elizabeth WilkinsonLipase STAT 20:11/20/2020 20:38 Leodan Alarcon; Elizabeth WilkinsonUrinalysis (Clean STAT 20:19 11/20/2020 Ack'd: 20:41 21:29 Jose,Catch) Leodan MENDEZ; Elizabeth Alarcon R.N.Lactic Acid STAT 20:19 11/20/2020 20:38 Leodan Alarcon R.N.COVID-19 CAH (Not STAT 22:46 11/20/2020 22:52 Kim,Symptomatic as Leodan MENDEZ; VirginiaDefined by CDC)(11/20/2020) (FirstTest) (Hospitalized)(Not ) (NotResident inCongregate CareSetting) (NotEmployed inHealthcare Setting)DIAGNOSTIC STUDY ORDERSOrder Description Priority Entered Acknowledged InitialedCT Abd PEL W/ IV STAT 20:19 11/20/2020 Ack'd: 20:41 21:06 Jose,Contrast Only Leodan MENDEZ; Elizabeth Alarcon(Oxygen?(No)) Jaja(IV?(No)) Reason for Study: increasing pain to umbilicus and LLQ abd, hx umbilical hernia 2 OrderSheet [facility] Department [address] [place] [address] Phone #: ext- [phone] 11/20/2020 17:4 7 Patient: LEODAN MARIN Sex: M : 1975 Age: 44y and prior diverticulitis.MEDICATION/IV/DRIP/FLUID ORDERSOrder Description Priority Entered Acknowledged InitialedNS IV : Bolus 500 20:19 11/20/2020 20:42 Dorian,mL, then 75 mL/hr Leodan Johnson R.N.(NOW x1)Morphine IVP 4 mg 22:03 11/20/2020 Ack'd: 22:03 22:08 Jose,(NOW x1, keep o2 Radha Grahamat > 90%, HIGHALERTMEDICATION)Zofran IVP 4 mg 22:03 11/20/2020 Ack'd: 22:03 22:09 Leodan Garcia; Radha Garcia Ciprofloxacin IVPB 22:09 11/20/2020 Ack'd: 22:09 22:13 Jose,400 mg Leodan MENDEZ; Radha GarcianFlagyl IVPB 500 22:09 11/20/2020 Ack'd: 22:13 23:13 Jose,mg/100mL Leodan MENDEZ; Radha GarcianGENERAL ORDERSOrder Description Priority Entered Acknowledged InitialedNPO 20:19 11/20/2020 20:22 Leodan Garcia; Radha[Electronically signed by Leodan Bah (23:07 11/20/2020)][Electronically signed by Radha Garcia (00:33 2020)][Electronically locked by Radha Garcia (00:33 2020)] Name Value Range Interpretation Code Description Data Jeanne rce(s) Supporting Document(s) ID Date Data Source [id number] 11/20/2020 05:50:00 PM EDT [facility] 1 Medication Reconciliation Report [facility] Department [address] [place] [address] Phone #: ext- [phone] 11/20/2020 17:47 Patient: LEODAN MARIN Sex: M : 1975 Age: 44yWeight: 13.6 kgHeight/Length: 71 in.BMI: 4.2ALLERGIES: No Known Drug AllergyThe patient's Home Medications are listed below:THE FOLLOWING MEDICATIONS NEED TO BE RECONCILED: Allergy Med Fish Oil Oral Multivitamin Oral PriLOSEC OralThe source(s) of the original Home Medication information:Not obtained.The following Medications were given to the patient in the Emergency Department:NS [IV] IV Fluids bolus 0, then 1000 mL/hr, administered: 20:42 11/20/2020Morphine [IVP] IVP 4 mg, administered: 22:08 11/20/2020Zofran [IVP] IVP 4 mg, administered: 22:09 11/20/2020iprofloxacin [IVPB] IVPB bolus 0, then 400 mg 100 mL/hr, administered: 22:13 11/20/2020Flagyl [IVPB] IVPB bolus 0, then 500 mg 100 mL/hr, administered: 23:13 11/20/2020The following Medications were prescribed to the patient:None. Name Value Range Interpretation Code Description Data Jeanne rce(s) Supporting Document(s) ID Date Data Source [id number] 11/20/2020 05:50:00 PM EDT [facility] 1 Medication Administration Record [facility] [address] [place] [address] Phone #: ext- [phone] 11/20/2020 17:47 Patient: LEODAN MARIN Sex: M : 1975 Age: 44yWeight: 13.6 kgHeight/Length: 71 inBMI: 4.2ALLERGIES: No Known Drug Allergy Date/Time Medication Administered Medication OrderedStart NS [IV] NS IV : Bolus 500 mL, then 7520:42 11/20/2020 Dose: IV Fluids mL/hr (NOW x1)Elizabeth Alarcon R.N. Rate: 1000 mL/hr over 30 minute(s)---- Dispensed: 1000 mL bagStop Site: #1 left AC00:23 2020Radha fleming,Given MORPHINE [IVP] Morphine IVP 4 mg (NOW x1, keep22:08 11/20/2020 Dose: 4 mg IVP o2 sat > 90%, HIGH ALERTRadha Garcia, Site: #1 left AC MEDICATION)Given ZOFRAN [IVP] (ONDANSETRON HCL) Zofran IVP 4 mg22:11/20/2020 Dose: 4 mg Radha Boss, Site: #1 left ACStart CIPROFLOXACIN [IVPB] Ciprofloxacin IVPB 400 mg22:11/20/2020 Dose: 400 mg IVRadha Baxter, Rate: 100 mL/hr over 1 hour(s)---- Dispensed: 100 mL bagStop Site: #1 left AC23:11/20/2020Radha fleming,Start FLAGYL [IVPB] (METRONIDAZOLE IN Flagyl IVPB 500 mg/814dZ74:11/20/2020 NACL)Radha Garcia, Dose: 500 mg IVPB---- Rate: 100 mL/hr over 1 hour(s)Stop Dispensed: 100 mL bag00:2020 Site: #1 left Radha Green, Name Value Range Interpretation Code Description Data Jeanne rce(s) Supporting Document(s) ID Date Data Source [id number] 11/20/2020 05:50:00 PM EDT [facility] 1 General Instructions [facility] Department [address] [place] [address] Phone #: ext- [phone] 11/20/2020 17:47 Patient: LEODAN MARIN Sex: M : 1975 Age: 44yAcute diverticulitis of the colon. No perforation, bleeding, abscess, peritonitis or obstruction.(Electronically signed by ANDREA Pedro 11/20/2020 23:07) Name Value Range Interpretation Code Description Data Jeanne rce(s) Supporting Document(s) ID Date Data Source [id number] 11/20/2020 05:50:00 PM EDT [facility] 1 Clinical Report - Nurses [facility] Emergency Department [address] [place] [address] Phone #: ext- [phone] 11/20/2020 17:47 Patient: LEODAN MARIN Sex: M : 1975 Age: 44yTRIAGEArrived by private vehicle. Historian: patient. Accompanied by family. ( dx with hernia anddiverticulitisnow has been left of umbilicus).Acuity: LEVEL 3.Chief Complaint: ABDOMINAL PAIN.Alert.This started today. He has had abdominal pain. The pain is described as located in the left side of theabdomen.Treatment LABORER LANDSCAPE:None.SEPSIS SCREEN: SIRS SCREEN NEGATIVE. SEPSIS SCREEN NEGATIVE. No suspected or confirmedsigns of infection present. --18:28 11/20/20 Cristina Blood R.N.18:23 11/20/20. BP: 144/89. MAP: 107. HR: 88. RR: 18. O2 saturation: 98%. Temp: 99 F. Pain level now:08/15. --18:28 11/20/20 Cristina Blood R.N.Weight: 13.6 kg stated. Height/Length: 71 inches Per Patient. BMI: 4.2. --18:22 11/20/20 Cristina Blood R.N.MedicationsPriLOSEC Oral. --18:24 11/20/20 Cristina Blood R.N. Fish Oil Oral. Multivitamin Oral. --18:25 11/20/20 Cristina Blood R.N. Allergy Med. --18:25 11/20/20 Cristina Blood R.N.AllergiesNo Known Drug Allergy. --18:24 11/20/20 Cristina Blood R.N.PROBLEMS:Hernia.Diverticulitis.Chest Pain.Diverticulosis.Pulmonary Embolism.Pneumonia. --18:26 11/20/20 Cristina Blood R.N.ADDITIONAL SURGERIES: 2 Clinical Report - Nurses [facility] Department [address] [place] [address] Phone #: ext- [phone] 11/20/2020 17:47 Patient: LEODAN MARIN Sex: M : 1975 Age: 44y Testicular torsion surgery. Vasectomy. --18:26 11/20/20 Cristina Blood R.N. History PAST MEDICAL HX: Immunizations: status is unknown. SOCIAL HX: Never smoker. Occasional alcohol use. No drug use. No recent travel. No known contact with a sick individual. He was offered HIV testing but declined and hepatitis C testing but declined. He has not traveled outside the [place] Infectious disease exposure: No infectious disease exposure. The patient was not exposed to Coronavirus. P archie is not a known carrier of tuberculosis, hepatitis, HIV, MRSA or VRE. Patient is not a known carrier of CRE. SELF HARM ASSESSMENT: Self harm assessment was performed. The patient answered "no" to the question(s) "Have you recently felt down, depressed, or hopeless?" and "Do you have thoughts of harming or killing yourself?". ABUSE ASSESSMENT: Abuse assessment. Abuse denied. No suspicion of abuse. No report of abuse. NUTRITIONAL RISK ASSESSMENT: The nutritional risk assessment revealed no deficiencies. FUNCTIONAL ASSESSMENT: Functional assessment: no impairments noted. LEARNING NEEDS ASSESSMENT: The learning needs assessment revealed no barriers. FALL RISK ASSESSMENT: Fall risk assessment completed. No risk factors identified. SKIN INTEGRITY ASSESSMENT: Skin integrity risk assessment completed. No skin integrity risk identified. --18:28 11/20/20 Cristina Blood R.N. Interventions Identification band on patient. To treatment room. --18:28 11/20/20 Cristina Blood R.N.PHYSICAL ASSESSMENTAmbulatory to room.GENERAL / NEURO / PSYCH: Alert. Oriented X 4. Appears in no acute distress.HEENT: Mucous membranes are pink.RESPIRATORY: Respirations not labored. Breath sounds within normal limits.CVS: Normal sinus rhythm noted. Capillary refill less than 2 seconds.GI / : Abdomen soft. Abdominal tenderness. Bowel sounds within normal limits.SKIN: Skin is warm and dry. --20:17 11/20/20 Radha Garcia.NURSING PROGRESS NOTESPatient gowned. Reassurance given. Patient identifiers checked. Call light placed in reach. Side railsup x 2. Bed placed in lowest position. Brakes of bed on. Patient ready for evaluation. --20:18 11/20/20 3 Clinical Report - Nurses [facility] Department [address] [place] [address] Phone #: ext- [phone] 11/20/2020 17:47 Patient: LEODAN MARIN Sex: M : 1975 Age: 44yBEmerson flemingn20:42 11/20/2020 Site #1 started via IV in the left antecubital space with an 20g angiocath, with aseptictechnique; one attempt. Blood drawn: rainbow set. Sent to the lab. Saline lock flushed with 10 mL saline.--20:42 11/20/20 Elizabeth Alarcon R.N.20:42 11/20/2020 Started bag #1 1000 mL IV Fluids NS; at 1000 mL/hr over 30 minute(s) via site #1 via IVpump. Allergies verified and confirmed 5 rights. IV patency established. IV site check ed: no pain, redness,or swelling. IV flushed thoroughly pre- and post-medication administration. Information reviewed withpatient. Verbalizes understanding. --20:42 11/20/20 Elizabeth Alarcon R.N.late entry - 21:20 11/20/20. Reassurance given.Rounding: Pain: assessed pain level. Position: states comfortable. Personal care / toileting: denies toiletingneeds. Proximity of possessions / care items: call light within easy reach. Plug ins: assured IV pumpplugged in; checked status of equipment in use; located all cords, tubes, and lines to prevent fall hazard.--21:42 11/20/20 JoseFarheen jacksonVmxegkp76:11/20/2020 Morphine IVP 4 mg given over 3 minute(s) via site #1. Allergies verified and confirmed 5rights. IV patency established. IV site checked: no pain, redness, or swelling. IV flushed thoroughly pre-and post-medication administration. IVP given by RN. Information reviewed with patient including reasonfor taking this medication, signs of allergic reaction, precautions and sedative warning. Verbalizesunders tanding. --22:11/20/20 Syd Garcia2:11/20/2020 Zofran (Ondansetron HCl) IVP 4 mg given over 2 minute(s) via site #1. Allergies verifiedand confirmed 5 rights. IV patency established. IV site checked: no pain, redness, or swelling. IV flushedthoroughly pre- and post-medication administration. IVP given by RN. Information reviewed with patientincluding reason for taking this medication, signs of allergic reaction and precautions. Verbalizesunderstanding. --22:11/20/20 Syd Gacria2:11/20/2020 Started 400 mg of Ciprofloxacin IVPB in bag #1 100 mL; at 100 mL/hr over 1 hour(s) viasite #1. via IV pump. Allergies verified and confirmed 5 rights. IV patency established. IV site checked: nopain, redness, or swelling. IV flushed thoroughly pre- and post-medication administration. Informationreviewed with patient including reason for taking this medication, signs of allergic reaction and precautions.Verbalizes understanding. --22:11/20/20 Syd Garcia3:11/20/2020 Started 500 mg of Flagyl (metroNIDAZOLE in NaCl) IVPB in bag #1 100 mL; at 100mL/hr over 1 hour(s) via site #1. via IV pump. Allergies verified and confirmed 5 rights. IV patencyestablished. IV site checked: no pain, redness, or swelling. IV flushed thoroughly pre- and post-medicationadministration. Information reviewed with patient including reason for taking this medication, signs ofallergic reaction and precautions. Verbalizes understanding. --23:11/20/20 Syd Garcia3:11/20/2020 Ciprofloxacin IVPB via IV site #1 Discontinued: completed. Total amount infused: 100mL. IV patency established. IV site checked: no pain, redness, or swelling. IV flushed thoroughly. --23:13 4 Clinical Report - Nurses [facility] [address] [place] [address] Phone #: ext- [phone] 11/20/2020 17:47 Patient: LEODAN MARIN Sex: M : 1975 Age: 44y 11/20/20 Radha Garcia 00:13 2020 Flagyl IVPB via IV site #1 Discontinued: completed. Total amount infused: 100 mL. IV patency established. IV site checked: no pain, redness, or swelling. IV flushed thoroughly. --00:23 11/21/20 Radha Garcia 00:23 2020 IV Fluids NS via IV site #1 Discontinued: bag #1 STOPPED. Total amount infused: 600 mL. IV patency established. IV site checked: no pain, redness, or swelling. IV flushed thoroughly. --00:23 11/21/20 Radha Garcia 00:24 2020 Site #[address] upon transfer; patent, no pain and no signs of infection or infiltration. Converted to saline lock and flushed with saline. --00:24 11/21/20 Radha Garcia.DISPOSITION / DISCHARGE Transferred. Visit overview, summary of care (CCDA), Emtala forms and Face Sheet provided to EMS and transfer facility via paper and fax ([facility]). Transported via ambulance by EMS with IV and mask. Report was given to a nurse via a phone call and fax and visit overview. Report included patient's care, condition, vital signs, labs, medications and IV's. All questions were answered. Report was acknowledged and care was transferred. ([facility]). Bed requested. Bed obtained and ready. Spouse notified of admission. Patient's personal items; items were placed in belongings bag and transported with the patient. Collection of belongings was witnessed by 1 nurse. --23:57 11/20/20 Radha Garcia 00:26 11/21/20. BP: 124/85. HR: 77. RR: 15. O2 saturation: 98%. Temp: 97.7 F. Pain level now 05/17. --00:26 11/21/20 Radha Garcia Departure time: 00:32 2020. --00:32 11/21/20 Radha Garcia.Locked/Released at 2020 00:33 by Radha Garcia Name Value Range Interpretation Code Description Data Jeanne rce(s) Supporting Document(s) ID Date Data Source [id number] 11/20/2020 05:50:00 PM EDT [facility] 1 Clinical Report - Physicians/Mid Levels [facility] [address] [place] [address] Phone #: ext- [phone] 11/20/2020 17:47 Patient: LEODAN MARIN Sex: M : 1975 Age: 44y Time Seen: 20:10 11/20/2020. Arrived- By private vehicle. Historian- patient. Disposition decision: 22:44 11/20/2020.HISTORY OF PRESENT ILLNESS Chief Complaint: ABDOMINAL PAIN. This started today Increasing abdominal pain to umbilical region and LLQ abdomen, hx umbilical hernia and prior diverticulitis. Pt states he has been doing abdominal workouts that may have irritated his hernia, no NVD, no fever. It is described as sharp and stabbing and it is described as located in the periumbilical area and in the left abdomen and left lower quadrant and radiating to the left lower quadrant of the abdomen. At its maximum, severity described as 4 / 10. When seen in the E.D., severity described as 4 / 10. Modifying factors- worsened by movement. Relieved by rest. Not relieved by anything. No nausea, loss of appetite, vomiting or diarrhea. No recent travel. Similar symptoms previously. Patient has had similar symptoms several times. Recent medical care: Not recently seen/assessed.REVIEW OF SYSTEMS No constipation, black stools, hematemesis, difficulty with urination or pain with urination. No urinary frequency, bloody stools, fever, headache or sore throat. No blurred vision, chest pain, difficulty breathing, cough or joint pain. No skin rash, chills or back pain. Last bowel movement: recently. The patient has not had weight loss.PAST HISTORY See nurses notes. Problems: Hernia. Diverticulitis. Chest Pain. Diverticulosis. Pulmonary Embolism. Pneumonia. Additional Surgeries: Testicular torsion surgery. Vasectomy. Medications: Allergy Med. 2 Clinical Report - Physicians/Mid Levels [facility] [address] [place] [address] Phone #: ext- [phone] 11/20 17:47 [id number] Sex: M : 1975 Age: 44y Fish Oil Oral. Multivitamin Oral. PriLOSEC Oral. Allergies: No Known Drug Allergy.SOCIAL HISTORY Never smoker. Occasional alcohol use. No drug use. No recent travel.ADDITIONAL NOTES The nursing notes have been reviewed with agreement regarding the chief complaint, HPI, ROS, PMH and patient medications and allergies.PHYSICAL EXAM Vital Signs: 11/20/2020 18:23 BP: 144/89. MAP: 107. HR: 88. RR: 18. O2 saturation: 98%. Temp: 99 F. Pain level now: 4/10. Have been reviewed as abnormal and appear to be correct. Hyper tensive. Mean arterial pressure- normal. Heart rate normal. Respiratory rate normal. Temperature normal. Oxygen saturation normal. Appearance: Alert. Oriented X3. No acute distress. Eyes: Pupils equal, round and reactive to light. Eyes normal inspection. ENT: Ears normal. Nose normal. Pharynx normal. Neck: Normal inspection. Neck supple. CVS: Normal heart rhythm and rate. Heart sounds normal. Pulses normal. Respiratory: No respiratory distress. Painless inspiration. Breath sounds normal. Chest nontender. Abdomen: Soft. Moderate tenderness in the periumbilical area, left side of the abdomen and left lower quadrant. Bowel sounds normal. No organomegaly. No mass. Back: Normal inspection. Skin: Skin warm and dry. Normal skin color. No rash. Normal skin turgor. Extremities: Extremities exhibit normal ROM. No lower extremity edema. Neuro: Oriented X 3. No motor deficit. No sensory deficit. Reflexes normal.LABS, X-RAYS, AND EKG Abdominal CT: moderate diverticulitis without evidence of abscess or free air. Study type: abdomen and pelvis. Abdominal CT performed with IV contrast. The study was independently viewed by me and interpreted by the radiologist and contemporaneously by me. Interpretation time: 22:09 11/20/2020. Laboratory Tests: Laboratory tests have been ordered, with results reviewed and considered in the medical decision making process. CBC w Diff: (RUI: 11/20/2020 20:30) ( MsgRcvd 11/20/2020 21:15) Correction to results Test Result Flag Units (Reference) CBC W/AUTOMATED DIFF CORRECTED REPORT COMPLETE BLOOD COUNT WBC 12.3 H 10/uL (4.2 - 11.0) RBC 5.03 10/uL (4.50 - 6.30) HEMOGLOBIN 13.9 L g/dL (14.0 - 16.0) HEMATOCRIT 41.7 % (41.0 - 51.0) 3 Clinical Report - Physicians/Mid Levels [facility] [address] [place] [address] Phone #: ext- [phone] 11/20/2020 17:47 Patient: LEODAN MARIN Sex: M : 1975 Age: 44y MCV 82.9 fL (80.0 - 94.0) MCH 27.6 pg (27.0 - 34.0) MCHC 33.3 g/dL (31.0 - 36.0) RDW 14.1 % (11.5 - 14.8) PLATELETS 279 10/uL (150 - 450) MPV 9.9 fL (7.4 - 10.4) NEUT 74.9 % (37.0 - 80.0) LYMPH 13.8 L % (25.0 - 40.0) MONO 8.9 H % (3.0 - 8.0) EOS 2.0 % (0.0 - 7.0) BASO 0.2 % (0.0 - 2.0) %IG 0.2 H % (0.0 - 0.0) %NRBC 0.0 % (0.0 - 0.0) #NEUT 9.18 H 10/uL (2.00 - 6.90) #LYMPH 1.69 10/uL (0.60 - 3.40) #MONO 1.09 H 10/uL (0.00 - 0.90) #EOS 0.24 10/uL (0.00 - 0.70) #BASO 0.02 10/uL (0.00 - 0.20) #IG 0.03 10/uL (0.00 - 0.10) #NRBC 0.00 10/uL (0.00 - 0.00) MANUAL DIFF SEE BELOW Above is a corrected result. Previously reported on ( IdgRcvd 11/20/2020 20:51) as: MANUAL DIFF NOT INDICATED SEGS 74 % (37 - 80) %LYMPH 14 L % (25 - 40) %MONO 10 H % (3 - 8) %EOS 2 % (0 - 7) RBC MORPH NOT INDICATED FOLLOWING RESULTS REPORTED IN ERROR MANUAL DIFF{ CORRECTCMP: (RUI: 11/20/2020 20:30) ( MsgRcvd 11/20/2020 21:31) Final results Test Result Flag Units (Reference) COMPREHENSIVE METABOLIC PANEL COMPREHENSIVE METABOLIC PANEL SODIUM 138 mEq/L (134 - 153) POTASSIUM 4.0 mEq/L (3.6 - 5.0) CHLORIDE 102 mEq/L (98 - 107) CO2 25 MEQ/L (22 - 30) GLUCOSE 110 H MG/DL (70 - 99) BUN 15 MG/DL (7 - 21) CREATININE 0.8 MG/DL (0.7 - 1.5) BUN/CREAT 19 (8 - 27) TOTAL PROTEIN 7.5 G/DL (6.3 - 8.2) ALBUMIN 4.2 G/DL (3.9 - 5.0) GLOBULIN 3.3 H GM/DL (2.4 - 3.2) A/G RATIO 1.3 (0.8 - 2.0) CALCIUM 9.3 MG/DL (8.4 - 10.2) TOTAL BILI <0.7 MG/DL (0.2 - 1.3) ALKALINE PHOS 74 U/L (38 - 126) SGOT/AST 23 U/L (5 - 40) SGPT/ALT 26 U/L (7 - 56) ANION GAP 11.0 mmol/L (8.0 - 16.0) AGE 44 yrs NON-AA GFR >60 mL/min AFR AMER GFR >60 mL/min Male GFR Interprentation 20-49 yrs >60 mL/min Normal 4 Clinical Report - Physicians/Mid Levels [facility] Department [address] [place] [address] Phone #: ext- [phone] 11/20/2020 17:47 Patient: LEODAN MARIN Sex: M : 1975 Age: 44y 50-59 yrs >56 mL/min Normal 60-69 yrs >49 mL/min Normal 70-79yrs >42 mL/min Normal 80 and above >35 mL/min Normal Female GFR Interpretation 20-39 yrs >60 mL/min Normal 40-49 yrs >58 mL/min Normal 50-59 yrs >51 mL/min Normal 60-69 yrs >45 mL/min Normal 70-79 yrs >39 mL/min Normal 80 and above >32 mL/min Normal Lipase: (RUI: 11/20/2020 20:30) ( MsgRcvd 11/20/2020 21:29) F inal results Test Result Flag Units (Reference) LIPASE 18 U/L (13 - 60) Urinalysis: (RUI: 11/20/2020 19:00) ( MsgRcvd 11/20/2020 21:26) Final results Test Result Flag Units (Reference) URINALYSIS URINALYSIS SOURCE R COLOR yellow (NORMAL: Yello CLARITY clear (NORMAL: Clear SPEC GRAVITY 1.015 (1.001 - 1.030 pH 6 (5 - 9) GLUCOSE NORM (NORMAL: Negat BILIRUBIN NEG (NORMAL: Negat KETONE NEG (NORMAL: Negat PROTEIN NEG (NORMAL: Negat NITRITE NEG (NORMAL: Negat BLOOD NEG (NORMAL: Negat LEUK EST NEG (NORMAL: Negat UROBILINOGEN NOR (less than 1.0 MICROSCOPIC Not Indicate Lactic Acid: (RUI: 11/20/2020 20:30) ( MsgRcvd 11/20/2020 20:49) Final results Test Result Flag Units (Reference) LACTIC ACID 1.2 MMOL/L (0.2 - 2.2).PROGRESS AND PROCEDURES Course of Care: 20:24 Nov 20 2020. Awaiting CTAB results. 22:40 Nov 20 2020. Pt with moderate diverticulitis on CTAB, in pain, WBC 12.3, no beds at [facility], pt accepted for transfer at [facility], hospitalist service, ANDREA Schmitt, for further evaluation and treatment. Critical care performed (30 minutes). Time is exclusive of separately billable procedures. Time includes: direct patient care, patient reassessment, coordination of patient care, interpretation of data (laboratory data and pulse oximetry), review of patient's medical records, medical consultation and documentation of patient care- see progress notes. Disposition: Benefits, ri sks and alternatives to transfer explained to patient and spouse. Transferred. Summary of care (CCDA) provided to transfer facility. to [facility]. UTI (catheter associated) was not present prior to transfer. Pressure ulcer was not present prior to transfer. Vascular infection (catheter associated) was not present prior to transfer. Surgical site infection was not present prior to transfer. An object left in 5 Clinical Report - Physicians/Mid Levels [facility] Department [address] [place] [address] Phone #: ext- [phone] 11/20/2020 17:47 Patient: LEODAN MARIN Sex: M : 1975 Age: 44y surgery was not present prior to transfer. Blood incompatibility was not present prior to transfer. Air embolism was not present prior to transfer.CLINICAL IMPRESSION Acute diverticulitis of the colon. No perforation, bleeding, abscess, peritonitis or obstruction.(Electronically signed by ANDREA Pedro 11/20/2020 23:07) Name Value Range Interpretation Code Description Data Jeanne rce(s) Supporting Document(s) ID Date Data Source [id number] 11/20/2020 10:47:00 PM EDT [facility] ([facility] Name Value Range Interpretation Code Description Data Jeanne rce(s) Supporting Document(s) Laboratory test finding (navigational concept) Laboratory test result [facility] ([facility] First test?: Y~Employed in healthcare?: N~Symptomatic as defined by CDC?: N~Hospitalized?: Y Laboratory test finding (navigational concept) Laboratory test result [facility] ([facility] First test?: Y~Employed in healthcare?: N~Symptomatic as defined by CDC?: N~Hospitalized?: Y ID Date Data Source [id number] 11/20/2020 10:47:00 PM EDT [facility] Name Value Range Interpretation Code Description Data [facility](s) Supporting Document(s) COVID19 Case rprt NOT DETECTED [facility] This lab was ordered by [facility] and reported by [facility]. ID Date Data Source [id number] 11/20/2020 11:06:00 PM EDT [facility] NOT DETECTEDNOT DETECTED{ PROC EDURAL CONTROL VALID KIT LOT # _[id number] 11/20/20.2306.LBS. KIT EXP DATE _[id number] 11/20/20.2306.LBS. NORMAL RANGE IS NOT DETECTEDNEGATIVE RESULTS SHOULD BE TREATED PRESUMPTIVE AND, IF INCONSISTENT WITHCLINICAL SIGNS AND SYMPTOMS OR NECESSARY FOR PATIENT MANAGEMENT, SHOULD BETESTED WITH DIFFERENT AUTHORIZED OR CLEARED MOLECULAR TESTS. NEGATIVE RESULTSDO NOT PRECLUDE SARS-CoV-2 INFECTION AND SHOULD NOT BE USED THE SOLE BASISFOR PATIENT MANAGEMENT DECISIONS. Name Value Range Interpretation Code Description Data [facility] rce(s) Supporting Document(s) ID Date Data Source [id number] 11/20/2020 08:30:00 PM EDT [facility] ([facility] Name Value Range Interpretation Code Description Data Jeanne rce(s) Supporting Document(s) Comprehensive [employer] Laboratory test result [facility] ([facility] COMPREHENSIVE METABOLIC PANEL Sodium 138 meq/L 134-153 [facility] ([facility] Potassium 4.0 meq/L 3.6-5.0 [facility] ([facility] Chloride 102 meq/L 98-107 [facility] ([facility] Co2 25 meq/L 22-30 [facility] ([facility] Glucose 110 mg/dL 70-99 Above high normal [facility] ([facility] BUN 15 mg/dL 7-21 [facility] ([facility] Creatinine 0.8 mg/dL 0.7-1.5 [facility] ([facility] Total Protein 7.5 g/dL 6.3-8.2 [facility] ([facility] BUN/Creat 19 8-27 [facility] ([facility] Albumin 4.2 g/dL 3.9-5.0 [facility] ([facility] Globulin 3.3 GM/DL 2.4-3.2 Above high normal [facility] ([facility] Calcium 9.3 mg/dL 8.4-10.2 [facility] ([facility] A/G Ratio 1.3 0.8-2.0 [facility] ([facility] Total Bili Laboratory test result 0.2-1.3 [facility] ([facility] Alkaline Phos 74 U/L 38-126 [facility] ([facility] Sgot/Ast 23 U/L 5-40 [facility] Anion Gap 11.0 mmol/L 8.0-16.0 [facility] SGPT/Alt 26 U/L 7-56 [facility] ([facility] Age 44 yrs [facility] ([facility] Non-Aa GFR Laboratory test result [facility] ([facility] Afr Amer GFR Laboratory test result [facility] ([facility] Male GFR Interprentation 20-49 yrs >60 mL/min Normal 50-59 yrs >56 mL/min Normal 60-69 yrs >49 mL/min Normal 70-79yrs >42 mL/min Normal 80 and above >35 mL/min Normal Female GFR Interpretation 20-39 yrs >60 mL/min Normal 40-49 yrs >58 mL/min Normal 50-59 yrs >51 mL/min Normal 60-69 yrs >45 mL/min Normal 70-79 yrs >39 mL/min Normal 80 and above >32 mL/min Normal ID Date Data Source [id number] 11/20/2020 08:30:00 PM EDT [facility] ([facility] Name Value Range Interpretation Code Description Data Jeanne rce(s) Supporting Document(s) Lipoprotein lipase [Enzymatic activity/volume] in Serum or Plasm a 18 U/L 13-60 [facility] ([facility] ) ID Date Data Source [id number] 11/20/2020 08:30:00 PM EDT [facility] ([facility] Name Value Range Interpretation Code Description Data Jeanne rce(s) Supporting Document(s) CBC W/Automated Diff Laboratory test result [facility] ([facility] CORRECTE D REPORT COMPLETE BLOOD COUNT WBC 12.3 10^3/uL 4.2-11.0 Above high normal [facility] T ([facility] RBC 5.03 10^6/uL 4.50-6.30 [facility] Hemoglobin 13.9 g/dL 14.0-16.0 Below low normal [facility] ( [facility] MCV 82.9 fL 80.0-94.0 [facility] Hematocrit 41.7 % 41.0-51.0 [facility] MCHC 33.3 g/dL 31.0-36.0 [facility] MCH 27.6 pg 27.0-34.0 [facility] RDW 14.1 % 11.5-14.8 [facility] Platelets 279 10^3/uL 150-450 [facility] MPV 9.9 fL 7.4-10.4 [facility] Neut 74.9 % 37.0-80.0 [facility] Lymph 13.8 % 25.0-40.0 Below low normal [facility] ( [facility] [place] 8.9 % 3.0-8.0 Above high normal [facility] ([facility] Eos 2.0 % 0.0-7.0 [facility] Baso 0.2 % 0.0-2.0 [facility] %NRBC 0.0 % 0.0-0.0 [facility] %Ig 0.2 % 0.0-0.0 Above high normal [facility] #Lymph 1.69 10^3/uL 0.60-3.40 [facility] ([facility] #Neut 9.18 10^3/uL 2.00-6.90 Above high normal MEDEN T ([facility] #[place] 1.09 10^3/uL 0.00-0.90 Above high normal [facility] T ([facility] #Eos 0.24 10^3/uL 0.00-0.70 [facility] ([facility] #NRBC 0.00 10^3/uL 0.00-0.00 [facility] ([facility] #Ig 0.03 10^3/uL 0.00-0.10 [facility] ([facility] #Baso 0.02 10^3/uL 0.00-0.20 [facility] ([facility] Manual Diff Laboratory test result M EDENT ([facility] RBC Morph Laboratory test result ME DENT ([facility] <content> FOLLOWING RESULTS REPORTED IN ERROR </content>
<content>MANUAL DIFF</content>
<content></content>
<content></content>
<content> NOT</content>
<content>INDICATED</content>
<content><-- *Previously reported in error s011/20/20.JNL. . .M</content>
<content>{ CORRECT</content>
<content></content> Segs 74 % 37-80 [facility] %[place] 10 % 3-8 Above high normal [facility] %Eos 2 % 0-7 [facility] %Lymph 14 % 25-40 Below low normal [facility] ID Date Data Source [id number] 11/20/2020 08:30:00 PM EDT [facility] ([facility] Name Value Range Interpretation Code Description Data Jeanne rce(s) Supporting Document(s) Lactate [Mass/volume] in Serum or Plasma 1.2 mmol/L 0.2-2.2 AMANDA ([facility] ID Date Data Source [id number] 11/20/2020 09:31:00 PM EDT [facility] Name Value Range Interpretation Code Description Data [facility](s) Supporting Document(s) COMPREHENSIVE METABOLIC PANEL [facility] COMPREHENSIVE METABOLIC PANEL Sodium [Moles/volume] in Serum or Plasma 138 mEq/L 134 - 153 [facility] Potassium [Moles/volume] in Serum or Plasma 4.0 mEq/L 3.6 - 5.0 [facility] Chloride [Moles/volume] in Serum or Plasma 102 mEq/L 98 - 107 [facility] Carbon dioxide, total [Moles/volume] in Serum or Plasma 25 MEQ/L 22 - 30 [facility] Glucose [Mass/volume] in Serum or Plasma 110 MG/DL 70 - 99 [facility] BUN 15 MG/DL 7 - [facility] Creatinine [Mass/volume] in Serum or Plasma 0.8 MG/DL 0.7 - 1.5 [facility] BUN/CREAT 19 8 - 27 [facility] Protein [Mass/volume] in Serum or Plasma 7.5 G/DL 6.3 - 8.2 [facility] Albumin [Mass/volume] in Serum or Plasma 4.2 G/DL 3.9 - 5.0 [facility] Globulin [Mass/volume] in Serum by calculation 3.3 GM/DL 2.4 - 3.2 H [facility] A/G RATIO 1.3 0.8 - 2.0 [facility] Calcium [Mass/volume] in Serum or Plasma 9.3 MG/DL 8.4 - 10.2 [facility] Bilirubin.total [Mass/volume] in Serum or Plasma <0.7 MG/DL 0.2 - 1.3 [facility] Alkaline phosphatase [Enzymatic activity/volume] in Serum or Plasma 74 U/L 38 - 126 [facility] Aspartate aminotransferase [Enzymatic activity/volume] in Serum or Plasma 23 U/L 5 - 40 [facility] Alanine aminotransferase [Enzymatic activity/volume] in Seru m or Plasma 26 U/L 7 - 56 [facility] Anion gap 3 in Serum or Plasma 11.0 mmol/L 8.0 - 16.0 [facility] AGE 44 yrs [facility] NON-AA GFR >60 mL/min [facility] AFR AMER GFR >60 mL/min [facility] Male GFR In terprentation 20-49 yrs >60 mL/min Normal 50-59 yrs >56 mL/min Normal 60-69 yrs >49 mL/min Normal 70-79yrs >42 mL/min Normal 80 and above >35 mL/min Normal Female GFR Interpretation 20-39 yrs >60 mL/min Normal 40-49 yrs >58 mL/min Normal 50-59 yrs >51 mL/min Normal 60-69 yrs >45 mL/min Normal 70-79 yrs >39 mL/min Normal 80 and above >32 mL/min Normal ID Date Data Source [id number] 11/20/2020 09:29:00 PM EDT [facility] Name Value Range Interpretation Code Description Data Jeanne rce(s) Supporting Document(s) Lipase [Enzymatic activity/volume] in Serum or Plasma 18 U/L 13 - 60 [facility] ID Date Data Source [id number] 11/20/2020 09:15:00 PM [facility] Name Value Range Interpretation Code Description Data Jeanne rce(s) Supporting Document(s) CBC W/AUTOMATED DIFF [facility] CORRECTE D REPORT COMPLETE BLOOD COUNT Leukocytes [#/volume] in Blood by Automated count 12.3 10^3/uL 4.2 - 11.0 H [facility] Erythrocytes [#/volume] in Blood by Automated count 5.03 10^6/uL 4. 50 - 6.30 [facility] Hemoglobin [Mass/volume] in Blood 13.9 g/dL 14.0 - 16.0 L [facility] Hematocrit [Volume Fraction] of Blood by Automated count 41.7 % 4 1.0 - 51.0 [facility] Erythrocyte mean corpuscular volume [Entitic volume] by Auto mated count 82.9 fL 80.0 - 94.0 [facility] Erythrocyte mean corpuscular hemoglobin [Entitic mass] by Automated count 27.6 pg 27.0 - 34.0 [facility] Erythrocyte mean corpuscular hemoglobin concentration [Mass/volume] by Automated count 33.3 g/dL 31.0 - 36.0 [facility] Erythrocyte distribution width [Ratio] by Automated count 14.1 % 11.5 - 14.8 [facility] Platelets [#/volume] in Blood by Automated count 279 10^3/uL 150 - 45 0 [facility] Platelet mean volume [Entitic volume] in Blood by Automated count 9.9 fL 7.4 - 10.4 [facility] Neutrophils/100 leukocytes in Blood by Automated count 74.9 % 37. 0 - 80.0 [facility] Lymphocytes/100 leukocytes in Blood by Manual count 13.8 % 25.0 - 40.0 L [facility] Monocytes/100 leukocytes in Blood by Automated count 8.9 % 3.0 - 8.0 H [facility] Eosinophils/100 leukocytes in Blood by Automated count 2.0 % 0.0 - 7.0 [facility] Basophils/100 leukocytes in Blood by Automated count 0.2 % 0.0 - 2.0 [facility] %IG 0.2 % 0.0 - 0.0 [facility] %NRBC 0.0 % 0.0 - 0.0 [facility] Neutrophils [#/volume] in Blood by Automated count 9.18 10^3/uL 2.00 - 6.90 H [facility] Lymphocytes [#/volume] in Blood by Automated count 1.69 10^3/uL 0.60 - 3.40 [facility] Monocytes [#/volume] in Blood by Automated count 1.09 10^3/uL 0.00 - 0.90 H [facility] Eosinophils [#/volume] in Blood by Automated count 0.24 10^3/uL 0.00 - 0.70 [facility] Basophils [#/volume] in Blood by Automated count 0.02 10^3/uL 0.00 - 0.20 [facility] #IG 0.03 10^3/uL 0.00 - 0.10 [facility] #NRBC 0.00 10^3/uL 0.00 - 0.00 [facility] MANUAL DIFF SEE BELOW [facility] Segmented neutrophils/100 leukocytes in Blood by Manual count 74 % 37 - 80 [facility] %LYMPH 14 % 25 - 40 L [facility] %MONO 10 % 3 - 8 [facility] %EOS 2 % 0 - 7 [facility] RBC MORPH NOT INDICATED [facility] FOLLOWING RESULTS REPORTED IN ERROR MANUAL DIFF { CORRECT ID Date Data Source [id number] 11/20/2020 08:49:00 PM EDT [facility] Name Value Range Interpretation Code Description Data Jeanne rce(s) Supporting Document(s) Lactate [Moles/volume] in Serum or Plasma 1.2 MMOL/L 0.2 - 2.2 [facility] ID Date Data Source [id number] 11/20/2020 07:00:00 PM EDT [facility] ([facility] Name Value Range Interpretation Code Description Data Jeanne rce(s) Supporting Document(s) Source Laboratory test result [facility] ([facility] SOURCE: Clean Catch Urinalysis Laboratory test result ME D[facility] ([facility] SOURCE: Clean Catch Clarity Laboratory test result [facility] ([facility] SOURCE: Clean Catch Color Laboratory test result [facility] ([facility] SOURCE: Clean Catch Spec [place] 1.015 1.001-1.030 [facility] ([facility] SOURCE: Clean Catch pH 6 5-9 [facility] ([facility] SOURCE: Clean Catch Glucose Laboratory test result [facility] ([facility] SOURCE: Clean Catch Bilirubin Laboratory test result ME DENT ([facility] SOURCE: Clean Catch Ketone Laboratory test result [facility] ([facility] SOURCE: Clean Catch Protein Laboratory test result [facility] ([facility] SOURCE: Clean Catch Nitrite Laboratory test result [facility] ([facility] SOURCE: Clean Catch Blood Laboratory test result [facility] ([facility] SOURCE: Clean Catch Urobilinogen Laboratory test result [facility] ([facility] SOURCE: Clean Catch Leuk Est Laboratory test result [facility] ([facility] SOURCE: Clean Catch Microscopic Laboratory test result M EDENT ([facility] SOURCE: Clean Catch ID Date Data Source [id number] 11/20/2020 09:25:00 PM EDT [facility] Name Value Range Interpretation Code Description Data Jeanne rce(s) Supporting Document(s) [facility]IS [facility] URINALYSIS SOURCE R [facility] COLOR yellow NORMAL: Yellow [facility] CLARITY clear NORMAL: Clear [facility] Specific gravity of Urine by Test strip 1.015 1.001 - 1.030 [facility] pH 6 5 - 9 [facility] Glucose [Mass/volume] in Urine by Test strip NORM NORMAL: Negat [facility] Bilirubin.total [Presence] in Urine by Test strip NEG NORMAL: Negative [facility] Ketones [Presence] in Urine by Test strip NEG NORMAL: Negative [facility] Protein [Mass/volume] in Urine by Test strip NEG NORMAL: Negat [facility] Nitrite [Presence] in Urine by Test strip NEG NORMAL: Negative [facility] BLOOD NEG NORMAL: Negative [facility] LEUK EST NEG NORMAL: Negative [facility] Urobilinogen [Mass/volume] in Urine by Test strip NOR less bari n 1.0 mg/dL [facility] MICROSCOPIC Not Indicate [facility] Procedure Social History Code Duration Value Status Description Data Source(s ) 11/22/2020 09:25:11 AM EDT Never smoker completed Never s [facility] Smoking 11/22/2020 09:25:00 AM EDT Never smoker completed Never s [facility] 2020 01:38:33 AM EDT No completed No [facility] 2020 01:38:33 AM EDT No completed [facility] Vital Signs ID Date Data Source UNK Name Value Range Interpretation Code Description Data Source(s) Systolic blood pressure 150 mm[Hg] 150 [facility]Hg[facility] Diastolic blood pressure 88 mm[Hg] 88 mm[Hg] [facility] Body temperature 98.3 [degF] 98.3 [degF] [facility] ([facility]) Body height 71 [in_i] 71 [in_i] [facility] ([facility]) 5'11" [place] body weight 172 [lb_av] 172 [lb_av] [facility] Body weight 149.234 kg 149.234 kg [facility] ([facility]) Body surface area Derived from formula 2.61 m2 2.61 m2 [facility] ([facility]) Body weight 329.00 [lb_av] 329.00 [lb_av] [facility] Body mass index (BMI) [Ratio] 45.9 kg/m2 45.9 k g/m2 [facility] ([facility]) Systolic blood pressure 126 mm[Hg] 126 mm[Hg] M EDENT ([facility] Diastolic blood pressure 82 mm[Hg] 82 mm[Hg] [facility] ([facility] Body temperature 96.7 [degF] 96.7 [degF] [facility] Heart rate 82 /min 82 /min [facility] Oxygen saturation in Arterial blood by Pulse oximetry 96 % 96 % [facility] Respiratory rate 16 /min 16 /min [facility] Body height 71 [in_i] 71 [in_i] [facility] ([facility] 5'11" Body weight 328.00 [lb_av] 328.00 [lb_av] [facility] T ([facility] [place] body weight 172 [lb_av] 172 [lb_av] [facility] T ([facility] Body mass index (BMI) [Ratio] 45.7 kg/m2 45.7 k g/m2 [facility] ([facility] Systolic blood pressure 134 mm[Hg] 134 mm[Hg] M EDENT ([facility] Diastolic blood pressure 80 mm[Hg] 80 mm[Hg] [facility] ([facility] Body temperature 98.8 [degF] 98.8 [degF] [facility] ([facility] Body height 71 [in_i] 71 [in_i] [facility] ([facility] 5'11" [place] body weight 172 [lb_av] 172 [lb_av] [facility] T ([facility] Body mass index (BMI) [Ratio] 46.2 kg/m2 46.2 k g/m2 [facility] ([facility] Heart rate 74 /min 74 /min [facility] ([facility] Respiratory rate 16 /min 16 /min [facility] ( [facility] Body weight 331.00 [lb_av] 331.00 [lb_av] MEDEN T ([facility] Oxygen saturation in Arterial blood by Pulse oximetry 96 % 96 % [facility] ([facility] ID Date Data Source [id number] 03/02/2020 12:11:00 AM EDT [facility] spital Name Value Range Interpretation Code Description Data Source(s) Weight 5008 5008 [facility] pital Height 71 71 [facility] pital Weight 5008 5008 [facility] pital Weight Measurement Method 8 8 [facility] Weight 5008 5008 [facility] pital Temperature 97.1 97.1 [facility] spital Respiratory Effort 1 1 [facility] Respiratory Rate 16 16 [facility] Pulse Rate 77 77 [facility] pital Height 71 71 [facility] pital Blood Pressure 144/87 144/87 [facility] Weight Measurement Method 8 8 [facility] Weight 5008 5008 [facility] pital Temperature 97.1 97.1 [facility] spital Respiratory Effort 1 1 [facility] Respiratory Rate 16 16 [facility] Pulse Rate 77 77 [facility] pital Height 71 71 [facility] pital Blood Pressure 144/87 144/87 [facility] Weight 5008 5008 [facility] pital Height 71 71 [facility] pital
[2021-03-25] MEDS ORDERED: LIDOCAINE 2% MDV 20ML VIAL As Ordered ONE (13:41)
--- NOTE | 2021-03-25 15:21 | ROOR ---
Patient Name: Ed Marin Procedure Date: 03/25/2021 2:10 PM Date of : 1975 Age: 45 Room: [facility] Gender: Male Note Status: Finalized Procedure: Colonoscopy Indications: Follow-up of diverticulitis Providers: Edmar Villalba MD Referring MD: EVANGELINA WEBER DO Requesting Provider: Medicines: Monitored Anesthesia Care Complications: No immediate complications. Procedure: Pre-Anesthesia Assessment: - Prior to the procedure, a History and Physical was performed, and patient medications and allergies were reviewed. The patient is competent. The risks and benefits of the procedure and the sedation options and risks were discussed with the patient. All questions were answered and informed consent was obtained. Patient identification and proposed procedure were verified by the physician, the nurse and the snake charmer in the procedure room. Mental Status Examination: alert and oriented. Prophylactic Antibiotics: The patient does not require prophylactic antibiotics. Prior Anticoagulants: The patient has taken no previous anticoagulant or antiplatelet agents. ASA Grade Assessment: III - A patient with severe systemic disease. After reviewing the risks and benefits, the patient was deemed in satisfactory condition to undergo the procedure. The anesthesia plan was to use monitored anesthesia care (MAC). Immediately prior to administration of medications, the patient was re-assessed for adequacy to receive sedatives. The heart rate, respiratory rate, oxygen saturations, blood pressure, adequacy of pulmonary ventilation, and response to care were monitored throughout the procedure. The physical status of the patient was re-assessed after the procedure. The Colonoscope was introduced through the anus and advanced to the cecum, identified by appendiceal orifice and ileocecal valve. The colonoscopy was performed without difficulty. The patient tolerated the procedure well. The quality of the bowel preparation was excellent. Findings: The perianal and digital rectal examinations were normal. Many medium-mouthed diverticula were found in the entire colon. The exam was otherwise without abnormality. Impression: - Diverticulosis in the entire examined colon. - The examination was otherwise normal. - No specimens collected. Recommendation: - Discharge patient to home. - High fiber diet indefinitely. Procedure Code(s): --- Professional --- 62113, Colonoscopy, flexible; diagnostic, including collection of specimen(s) by brushing or washing, when performed (separate procedure) Diagnosis Code(s): --- Professional --- K57.32, Diverticulitis of large intestine without perforation or abscess without bleeding K57.30, Diverticulosis of large intestine without perforation or abscess without bleeding CPT copyright 2019 [employer] [place] [employer]. All rights reserved. The codes documented in this report are preliminary and upon nurse head review may be revised to meet current compliance requirements. Edmar Villalba MD Edmar Villalba MD 03/25/2021 3:21:14 PM Electronically signed by Edmar Villalba MD Number of Addenda: 0 Note Initiated On: 03/25/2021 2:10 PM Estimated Blood Loss: Estimated blood loss: none.
[2021-03-25 15:25] VITALS: BP 129/79
== END 2021-03-25 15:44 | disposition home or self-care (01) ==
LOC: M OPP 12:03
PROVIDERS: ATTEND Surgery
DX: K57.30 Diverticulosis of large intestine without perforation or abscess without bleeding (principal); K57.32 Diverticulitis of large intestine without perforation or abscess without bleeding; G47.30 Sleep apnea, unspecified; Z79.899 Other long term (current) drug therapy